=== PATIENT | female | born 1935 | race Caucasian/White ===

== ENCOUNTER 2023-09-02 00:19 | Outpatient (REF) | payer MEDICARE, SELFPAY ==
[2023-09-02 07:23] LABS: Basophils Percent Auto 0.5 % (0.2-2.0); Eosinophils Absolute Auto 0.2 10^3/uL (0.0-0.7); Eosinophils Percent Auto 2.7 % (0.9-7.0); Hematocrit 37.6 % (36.0-48.0); Hemoglobin 12.1 g/dL (12.0-16.0); Immature Granulocytes Abs Auto 0.02 10^3/uL (0.00-0.03); Immature Granulocytes Pct Auto 0.3 % (0.0-0.5); Lymphocytes Absolute Auto 2.4 10^3/uL (1.2-3.8); Lymphocytes Percent Auto 32.8 % (20.5-60.0); Mean Corpuscular HGB Conc 32.2 g/dL (29.9-35.2); Mean Corpuscular Hemoglobin 30.7 pg (26.7-34.0); Mean Corpuscular Volume 95.4 fL (81.0-99.0); Mean Platelet Volume 11.1 fL (9.5-13.5); Monocytes Absolute Auto 0.6 10^3/uL (0.3-0.8); Monocytes Percent Auto 8.7 % (1.7-12.0); Platelet Count 246 10^3/uL (150-450); Red Blood Count 3.94 10^6/uL (4.20-5.40); Red Cell Distribution Width 13.4 % (11.0-15.0); White Blood Count 7.3 10^3/uL (4.0-11.0)
[2023-09-02 07:30] LABS: Anion Gap 10.9; BUN Creatinine Ratio 27.8; Calcium 9.1 mg/dL (8.5-10.1); Carbon Dioxide 30.2 mmol/L (21.0-32.0); Chloride 102 mmol/L (98-107); Estimated GFR (African America >60 (>=60); Estimated GFR (Non-African Ame >60 (>=60); Glucose 96 mg/dL (74-106); Potassium 4.1 mmol/L (3.5-5.1); Sodium 139 mmol/L (136-145)
== END 2023-09-02 00:20 | disposition home or self-care (01) ==
LOC: LAB 00:19
PROVIDERS: PCP Internal Medicine; Visit Provider Internal Medicine
DX: E87.1 Hypo-osmolality and hyponatremia (principal); E55.9 Vitamin D deficiency, unspecified; R62.7 Adult failure to thrive
CPT/HCPCS: 36415; 80048; 85025

== ENCOUNTER 2024-03-02 02:17 | Outpatient (REF) | payer MEDICARE, SELFPAY ==
--- OUTSIDE RECORDS SUMMARY | 2024-03-02 02:24 | XMS_ITS | CCD ---
Author Organization [facility] Care Team Providers Care Renewals Manager Name Role Phone PHYSICIAN, DEFAULT Unavailable Unavailable PHYSICIAN, DEFAULT Unavailable Unavailable EDENILSON, AIMEE W Unavailable Unavailable EDENILSON, AIMEE W Unavailable Unavailable WEST, SABRA V Unavailable Unavailable EDENILSON, AIMEE W Unavailable Unavailable EDENILSON, AIMEE W Unavailable Unavailable EDENILSON, AIMEE W Unavailable Unavailable NARCISO BOSTON Unavailable Unavailable EDENILSON, AIMEE W Unavailable Unavailable EDENILSON, AIMEE W Unavailable Unavailable EDENILSON, AIMEE W Unavailable Unavailable EDENILSON, AIMEE W Unavailable Unavailable EDENILSON, AIMEE W Unavailable Unavailable MISC, DOCTOR Unavailable Unavailable EDENILSON, AIMEE W Unavailable Unavailable EDENILSON, AIMEE W Unavailable Unavailable EDENILSON, AIMEE W Unavailable Unavailable MISC, DOCTOR Unavailable Unavailable EDENILSON, AIMEE W Unavailable Unavailable EDENILSON, AIMEE W Unavailable Unavailable EDENILSON, AIMEE W Unavailable Unavailable EDENILSON, AIMEE W Unavailable Unavailable EDENILSON, AIMEE W Unavailable Unavailable EDENILSON, AIMEE W Unavailable Unavailable ASHLEY ISRAEL Unavailable Unavailable MIGDALIA VYAS Unavailable Unavailable WEST, SABRA V Unavailable Unavailable CAMILA MENON Unavailable Unavailable LEE BELLO Unavailable Unavailable NABOR LOPEZ Unavailable Unavailable FORD EVANS Unavailable Unavailable LUTHER HICKS Unavailable Unavailable EDENILSON, AIMEE W Unavailable Unavailable TRISTON WAGNER Unavailable Unavailable ASHLEY RODRÍGUEZ Unavailable Unavailable HALRAMONA CARBALLO Unavailable Unavailable EDENILSON, AIMEE W Unavailable Unavailable CHRISTI FORMAN Unavailable Unavailable HANNAH TOMLIN Unavailable Unavailable HANNAH TOMLIN Unavailable Unavailable Carlos Enrique Vasquez Unavailable Allergies Allergy Classification Reported Allergen(s) Allergy Type Date of Onset Reaction(s) Facility (2 sources) Cefuroxime Drug Allergy Unknown [employer] Other Medications Current Medications Medication Drug Class(es) Dates Sig (Normalized) Sig (Original) Calcium (2 sources) Phosphate Binder, Calcium take 2.5 tablets by mouth once daily Calcium 600mg 2.5 tabs Oral daily Active Colon Formula COLON HEALTH FORMULA (2 sources) Colon Formula COLON HEALTH FORMULA 1 Tablet Orally Active donepezil hydrochloride 10 mg oral tablet (2 sources) take 1 tablet by mouth at bedtime Donepezil HCl 10 MG TAKE 1 TABLET BY MOUTH AT BEDTIME Active Fiber-Lax (2 sources) take 3 tablets by mouth once daily Fiber-Lax 3 TABLETS Orally Daily Active hydroCHLOROthiazide 12.5 mg / lisinopril 10 mg oral tablet (2 sources) Thiazide Diuretic, Angiotensin Converting Enzyme Inhibitor take 1 tablet by mouth once daily Lisinopril-hydr oCHLOROthiazide 10-12.5 MG TAKE 1 TABLET BY MOUTH EVERY DAY Active paxlovid (300/100) 20 x 150 mg & 10 x 100mg tablet therapy pack (2 sources) Start: 09-04-2022 take 3 tablets by mouth every twelve hours Paxlovid (300/100) 20 x 150 MG & 10 x 100MG 3 tablets Orally Twice a day for 5 day(s) Aug, Active Problems Active Problems Problem Classification Problem Date Documented Da te Episodic/Chronic Bacterial infection (1 source) Other specified bacterial agents as the cause of diseases classified elsewhere; Translations: [OTH SPEC BACTERIAL DZ CLASS ELSW] Onset: 12-03-2017 Episodic Deficiency and other anemia (1 source) Iron deficiency anemia, unspecified; Translations: [IRON DEFICIENCY ANEMIA UNSPECIFIED] Onset: 11-21-2017 Episodic Delirium, dementia amnestic and other cognitive disorders (4 sources) Unspecified dementia without behavioral disturbance; Translations: [Senile dementia] Onset: 12-13-2017 Chronic Essential hypertension (8 sources) Essential (primary) hypertension; Translations: [Essential hypertension] Onset: 01-04-2010 Chronic Fluid and electrolyte disorders (5 sources) Hypo-osmolality and hyponatremia; Translations: [HYPO-OSMOLALITY AND HYPONATREMIA] Onset: 11-21-2017 Episodic Gastrointestinal hemorrhage (2 sources) Hematochezia; Translations: [Melena] Episodic Hemorrhoids (2 sources) Hemorrhoids; Translations: [Unspecified hemorrhoids] Episodic Malaise and fatigue (3 sources) Weakness; Translations: [Fatigue] Onset: 11-21-2017 Episodic Mood disorders (5 sources) Major depressive disorder, single episode, unspecified; Translations: [MOSES DEPRESS D/O SINGLE EPIS UNS] Onset: 12-01-2017 Nausea and vomiting (1 source) Nausea with vomiting, unspecified; Translations: [NAUSEA WITH VOMITING UNSPECIFIED] Onset: 11-21-2017 Episodic Nutritional deficiencies (1 source) Moderate protein-calorie malnutrition; Translations: [MODERATE PROTEIN-CALORIE MLNUTRIT] Onset: 11-21-2017 Chronic Occlusion or stenosis of precerebral arteries (1 source) Occlusion and stenosis of right carotid artery; Translations: [OCCLUSION AND STENOSIS RT CAROTID ART] Onset: 12-13-2017 Chronic Osteoarthritis (5 sources) Degenerative joint disease involving multiple joints; Translations: [Osteoarthrosis, generalized, site unspecified] Onset: 01-04-2010 Chronic Osteoporosis (3 sources) Senile osteoporosis; Translations: [Age-related osteoporosis without current pathological fracture] Chronic Other aftercare (1 source) Other alf (current) drug therapy; Translations: [OTH MANAGER MONEY CURRENT DRUG THERAPY] Onset: 12-13-2017 Episodic Other bone disease and musculoskeletal deformities (1 source) Other specified disorders of bone density and structure, unspecified site; Translations: [OTH D/O BONE DEN STRUCT UNS SITE] Onset: 12-13-2017 Episodic Other gastrointestinal disorders (1 source) Diarrhea, unspecified; Translations: [DIARRHEA UNSPECIFIED] Onset: 12-13-2017 Episodic Other gastrointestinal disorders (2 sources) Loose stool; Translations: [Other fecal abnormalities] Episodic Other hereditary and degenerative nervous system conditions (2 sources) Impaired cognition; Translations: [Mild cognitive impairment, so stated] Chronic Other nutritional; endocrine; and metabolic disorders (1 source) Hypocalcemia; Translations: [HYPOCALCEMIA] Onset: 11-21-2017 Chronic Other nutritional; endocrine; and metabolic disorders (2 sources) Unintentional weight loss; Translations: [Abnormal weight loss] Episodic Other upper respiratory disease (4 sources) Allergic rhinitis; Translations: [Allergic rhinitis] Chronic Spondylosis; intervertebral disc disorders; other back problems (9 sources) Cervical arthritis; Translations: [Cervical arthritis] Onset: 05-09-2009 Chronic Spondylosis; intervertebral disc disorders; other back problems (3 sources) Cervicalgia; Translations: [Cervical disc disorder with radiculopathy, high cervical region] Onset: 11-21-2017 Episodic Unclassified (6 sources) Altered mental status, unspecified; Translations: [Body mass index (BMI) 19.9 or less, adult] Onset: 11-21-2017 Episodic Unclassified (1 source) Alcohol abuse, in remission; Translations: [ALCOHOL ABUSE IN REMISSION] Onset: 12-13-2017 Urinary tract infections (2 sources) Urinary tract infection, site not specified; Translations: [Personal history of urinary (tract) infections] Onset: 11-21-2017 Episodic Past or Other Problems Problem Classification Problem Date Documented Da te Episodic/Chronic Miscellaneous mental health disorders (2 sources) Transient insomnia; Translations: [Transient disorder of initiating or maintaining sleep] Onset: 06-28-2011 Episodic Other non-traumatic joint disorders (2 sources) Shoulder joint pain; Translations: [Joint pain, shoulder region] Onset: 05-09-2009 Episodic Unclassified (1 source) Dementia in other diseases classified elsewhere, mild, without behavioral disturbance, psychotic disturbance, mood disturbance, and anxiety F02.A0 Results Test Name Value Interpretation Reference Range Facility ROTAVIRUS AG, EIAon 12-03-19 18 Rotavirus Ag, EIA Negative Normal Negative [facility] Comment on above: Performed By: #### B MP ####[facility] Tbergquzxp7814 [address] [place] ER URINE PROFILEon 8 Bilirubin (total) Negative Normal NEGATIVE [facility] Comment on above: Performed By: #### B MP ####[facility] Lhyfxcsugy7713 [address] [place] BLOOD TRACE-INTACT Normal NEGATIVE [facility] Comment on above: Performed By: #### B MP ####[facility] Mtwylzkfpm2258 [address] [place] ERUAHD A micrscopic examination will be performed if indicated. Normal [facility] Comment on above: Performed By: #### B MP ####[facility] Qbjvvbevnn6323 [address] [place] Glucose mass conc Negative Normal NEGATIVE [facility] Comment on above: Performed By: #### B MP ####[facility] Kmvcdodghm9337 [address] [place] pH of blood 7.5 [pH] Normal 5-9 [facility] Comment on above: Performed By: #### B MP ####[facility] Nudqbydoyw1613 [address] [place] Protein Negative Normal [facility] Comment on above: Performed By: #### B MP ####[facility] [address] [place] [address] [place] SPEC GRAVITY 1.020 Normal 1.005-<=1.025 [facility] Comment on above: Performed By: #### B MP ####[facility] [address] [place] [address] [place] UR MICRO IND INDICATED Normal [facility] Comment on above: Performed By: #### B MP ####[facility] [address]scwpvr[address] [place] [address] [place] Urine, clarity CLEAR Normal [facility] Comment on above: Performed By: #### B MP ####[facility] [address] [place] [address] [place] Urine, color LT. YELLOW Normal YELLOW [facility] Comment on above: Performed By: #### B MP ####[facility] [address] [place] [address] [place] Urine, ketones presence Negative Normal NEGATIVE [facility] Comment on above: Performed By: #### B MP ####[facility] [address] [place] [address] [place] Urine, nitrite presence Negative Normal NEGATIVE [facility] Comment on above: Performed By: #### B MP ####[facility] [address]rel[address] [place] [address] [place] Urine, urobilinogen 0.2 {Vandana'U}/dL Normal [facility] Comment on above: Performed By: #### B MP ####[facility] Mrsxcmdfvh[address] [place] [address] [place] WBC (Leukocytes) Negative Normal NEGATIVE [facility] Comment on above: Performed By: #### B MP ####[facility] [address]wftyxtu[address] [place] [address] [place] PROF CHEM 8 (BAS METB)on Anion gap 12.2 mmol/L Normal [facility] Comment on above: Performed By: #### B MP ####[facility] Vvoiogegeq3470 [place] [id number] [place] BUN/Creatinine Ratio 24.0 mg/mg Normal [facility] Comment on above: Performed By: #### B MP ####[facility] Vlqtlkolix1992 [place] [id number] [place] Calcium 9.8 mg/dL Normal 8.4-10.2 [facility] Comment on above: Performed By: #### B MP ####[facility] Wchggzukgl7566 [place] [id number] [place] Chloride 93 mmol/L Critically low 98-107 [facility] Comment on above: Performed By: #### B MP ####[facility] Jxyskqrrka4614 [place] [address]Gerken [place] CO2 29.0 mmol/L Normal 22.0-30.0 [facility] Comment on above: Performed By: #### B MP ####[facility] [address] [place], [place] [address]Gerken [place] Creatinine 0.53 mg/dL Normal 0.52-1.04 [facility] Comment on above: Performed By: #### B MP ####[facility] [address]avfpxu[address] [place], [place] [address]Gerken [place] eGFR (non-black) mL/min/{1.73_m2} Normal >=60 [facility] Comment on above: Performed By: #### B MP ####[facility] Ssrkbtlfbk4388 [place] [id number] [place] Glucose mass conc 93 mg/dL Normal 74-106 [facility] Comment on above: Performed By: #### B MP ####[facility] Kmuffdokdq5702 [place] [id number] [place] Potassium molar conc 3.9 mmol/L Normal 3.4-5.0 [facility] Comment on above: Performed By: #### B MP ####[facility] [address] [place], [place] [address]Gerken [place] Sodium 130 mmol/L Critically low 137-145 [facility] Comment on above: Performed By: #### B MP ####[facility] Fbqlkwpvhj1911 [place] [id number] [place] Urea nitrogen 13.0 mg/dL Normal 7.0-17.0 [facility] Comment on above: Performed By: #### B MP ####[facility] Adkcwphgco5653 [place] [phone] [place] URINE MICROSCOPIC ONLYon CAST NONE SEEN Normal NONE SEEN [facility] Comment on above: Performed By: #### B MP ####[facility] Iefdpwiaah2143 [address] [place] CULTURE NOT INDICATED Normal The [facility] Comment on above: Performed By: #### B MP ####[facility] Xtbjormlvl9605 [address] [place] Erythrocytes (RBC) 2-5 Normal 0-2 [facility] Comment on above: Performed By: #### B MP ####[facility] Thqcyrazxi3878 [place] [id number] [place] MUCOUS TRACE Normal NONE SEEN [facility] Comment on above: Performed By: #### B MP ####[facility] Ouvhwioxlo7038 [place], [place] [address]Hdtwjh [place] Urine, bacteria in sediment TRACE Normal NONE SEEN [facility] Comment on above: Performed By: #### B MP ####[facility] Eqawunvabd4017 [place] [phone] [place] Urine, crystals in sediment NONE SEEN Normal NONE SEEN [facility] Comment on above: Performed By: #### B MP ####[facility] Iiaqqycncl6509 [place] [phone] [place] Urine, epithelial cells in sediment FEW Normal [facility] Comment on above: Performed By: #### B MP ####[facility] Dsjffsdjfg9445 [address] [place] WBC (Leukocytes) 0-2 Normal NONE SEEN [facility] Comment on above: Performed By: #### B MP ####[facility] Yzwsafhjbt9692 [place] [phone] [place] EHEC SHIGA TOXINon 8 E coli Shiga Toxin EIA Negative Normal Negative [facility] Comment on above: Performed By: #### B MP ####[facility] [address] [place], [place] [address]Gerken [place] CLOSTRIDIUM DIFFICILE PCRon 11-29-2017 C difficile Toxin Gene APRIL Positive Abnormal Negative [facility] Comment on above: Result Comment: Carina nt Requested FlagToxigenic C difficile: PositiveEpidemic Strain Bl/NAP1/027: Presumptive Positive Performed By: #### B MP ####[facility] [address]rs[address]tsx[address] [place], [place] [address]Gerken [place] CBC AUTO DIFFon 11-28-2017 Basophils Auto #/vol (Bld) 0.0 103/ul Normal 0.0-0.1 [facility] Comment on above: Performed By: #### Lisseth WILD BMP ####[facility] [address]ub[address] [place] [address] [place] Basophils/100 WBC Auto (Bld) 0.6 % Normal 0.2-2.0 [facility] Comment on above: Performed By: #### Lisseth WILD BMP ####[facility] [address]usbypcpt[address] [place] [address] [place] Eosinophils 0.1 103/ul Normal 0.0-0.7 [facility] Comment on above: Performed By: #### Lisseth WILD BMP ####[facility] F[address] [place] [address] [place] Eosinophils/100 leukocytes 2.0 % Normal 0.9-7.0 [facility] Comment on above: Performed By: #### PROSPER GREEN ####[facility] Yrkgkzgyqj[address] [place], [place] [address]Gerken [place] Erythrocyte distribution width Auto Ratio (RBC) 14.3 % Normal 11.0-15.0 [facility] Comment on above: Performed By: #### L IVER, BMP ####[facility] Zzhfyzvzce8338 [place] [phone] [place] Erythrocytes (RBC) 3.24 106/ul Critically low 4.20-5.40 [facility] Comment on above: Performed By: #### L TORRI, BMP ####[facility] Vlqxfxgryo6416 [place] [phone] [place] Hematocrit (HCT) 29.2 % Critically low 36.0-48.0 [facility] Comment on above: Performed By: #### L TORRI, BMP ####[facility] Tevwfct[address] [place], [place] [address]Gerken [place] Hemoglobin mass conc (Bld) 9.8 g/dL Critically low 12.0-16.0 [facility] Comment on above: Performed By: #### Lisseth WILD BMP ####[facility] Ezoinftopo[address] [place], [place] [address]Gerken [place] IG # 0.03 10e3/ul Normal 0.00-0.03 [facility] Comment on above: Performed By: #### Lisseth WILD BMP ####[facility] Nfxifrtpqn[address] [place], [place] [address]Gerken [place] IG % 0.6 % Critically high 0.0-0.5 [facility] Comment on above: Performed By: #### Lisseth WILD, BMP ####[facility] Asx[address]quxs[address] [place], [place] [address]Gerken [place] Lymphocytes 1.5 103/ul Normal 1.2-3.8 [facility] Comment on above: Performed By: #### L TORRI, BMP ####[facility] [address] [place] [address] [place] Lymphocytes/100 leukocytes 29.1 % Normal 20.5-60.0 [facility] Comment on above: Performed By: #### L TORRI, BMP ####[facility] [address]cf[address] [place], [place] [address]Gerken [place] MANUAL DIFF REQ NO Normal [facility] Comment on above: Performed By: #### Lisseth WILD, BMP ####[facility] Wdhhpqcvmv1742 [place], [place] [address]Wabnzv [place] MCH 30.2 pg Normal 26.7-34.0 [facility] Comment on above: Performed By: #### Lisseth WILD, BMP ####[facility] Bobcimpuva1902 [place], [place] [address]Arvyqi [place] MCHC mass conc (RBC) 33.6 g/dL Normal 29.9-35.2 [facility] Comment on above: Performed By: #### Lisseth WILD, BMP ####[facility] Lmlwnxnqud6136 [place], [place] [address]Shgpbb [place] MCV 90.1 fL Normal 81.0-99.0 [facility] Comment on above: Performed By: #### Lisseth WILD BMP ####[facility] Iyekuzkrmy4867 [place] [id number] [place] Monocytes 0.4 103/ul Normal 0.3-0.8 [facility] Comment on above: Performed By: #### Lisseth WILD BMP ####[facility] Uqntbaqpxc9004 [place], [place] [address]Gjwikc [place] Monocytes/100 leukocytes 7.1 % Normal 1.7-12.0 [facility] Comment on above: Performed By: #### Lisseth WILD BMP ####[facility] Fdzqzzlfnh8096 [place], [place] [address]Xtqlox [place] Neutrophils 3.1 103/ul Normal 1.4-6.5 [facility] Comment on above: Performed By: #### Lisseth WILD BMP ####[facility] Nmalnjxtkp4869 [place], [place] [address]Qozzot [place] Neutrophils/100 WBC Auto (Bld) 60.6 % Normal 43.0-75.0 [facility] Comment on above: Performed By: #### Lisseth WILD, BMP ####[facility] Dtibfntfpr7009 [place], [place] [address]Jxbvoa [place] Platelet mean volume (PMV) 10.1 fL Normal 9.5-13.5 [facility] Comment on above: Performed By: #### PROSPER GREEN ####[facility] Iitfspgazi9807 [place], [place] [address]Ltsifh [place] Platelets 266 103/ul Normal 150-450 [facility] Comment on above: Performed By: #### PROSPER GREEN ####[facility] Xxfbylzlgd9723 [place], [place] [address]Vuwagi [place] WBC (Leukocytes) 5.1 103/ul Normal 4.0-11.0 [facility] Comment on above: Performed By: #### PROSPER GREEN ####[facility] Gdcafgolvj6405 [place], [place] [address]Awwiuq [place] ECHOCARDIO M/2D COMPLETEon 0 11-28-2017 ECHOCARDIO M/2D COMPLETE [address] [place] [address] Patient: ALFIE DANIELLE Exam Date: 11/28/2017DOB: 1935 Gender:F : AIMEE PYLE . Admission #: [id number] : DR MIGDALIA VYAS . Order #: [id number] HERE TO VIEW EXAM ECHOCARDIOGRAM REPORT PROCEDURE: CARDIO PULMONARY ECHOCARDIO M/2D COMP INDICATIONS: General weakness, Dementia, Increased confusion COMPARISON: None. DESCRIPTION: COMPLETE ECHOCARDIOGRAM Real-time transthoracic echocardiography with 2D, M-mode, spectral and color flow Doppler performed. QUALITY: Technical quality was good. LEFT VENTRICLE: Normal chamber size. Normal left ventricular wall thickness. Normal left ventricular contractility. No left ventricular outflow obstruction.LV EF: Normal left ventricular ejection fraction, (>55%).DIASTOLIC: Grade I diastolic dysfunction.ATRIAL SEPTUM: Intact atrial septum. LEFT ATRIUM: Normal chamber size. RIGHT ATRIUM: Mild dilatation. RIGHT VENTRICLE: Normal chamber size. No right ventricular outflow obstruction. TRICUSPID VALVE: Normal mobility and thickness. No stenosis with mild to moderate regurgitation. No evidence of pulmonary hypertension. MITRAL VALVE: Normal mobility and thickness. No mitral valve prolapse. No evidence of mitral valve stenosis. There is no mitral annular calcification. Mild mitral regurgitation. AORTIC VALVE: Normal trileaflet appearance. Thickened aortic valve. Normal leaflet mobility. No evidence of aortic valve stenosis. Trace aortic regurgitation. AORTIC ROOT: Normal diameter and appearance. PULMONIC VALVE: Normal thickness and mobility. No stenosis. Trace regurgitation. PERICARDIUM: No evidence of pericardial effusion. IVC: Collapes with inspirations. PLEURA: No evidence of pleural effusion. CONCLUSION: Normal Left Ventricular and Right Ventricular Systolic Function Mild Mitral Regurgitation Mild to Moderate Tricuspid Regurgitation with normal right sided pressures Adult Echocardiography Procedure ReportLeft Ventricle LVEDD (3.7 - 5.6 cm): 4.28 cmLVESD (2.2 - 4.0 cm): 3.07 cmLVIVS thickness (0.6 - 1.2 cm): 7.20 mmLVPW thickness (0.5 - 1.0 cm): 7.20 mme': 8.55 cm/sE - e': 6.20LVOT Area (cm2): 3.14 ok6Feep Velocity (LVOT): 67.70 cm/sMean Velocity (LVOT): 40.80 cm/sLVOT Diameter 2.00 cmLeft Ventricular Ejection Fraction: 55 %Left Atrium Left Atrium Systolic Dimension: 2.60 cmLeft Atrium Systolic Area(A4C): 10.60 qk6Oqhx Atrium Systolic Volume(A4C): 37016 jm3Kazhpr Valve MV E to A Ratio: 0.90Mitral Valve A-Wave Peak Velocity: 60.20 cm/sMitral Valve E-Wave Peak Velocity: 53.30 cm/sRight Ventricle RV Internal Diastolic Dimension: 3.01 cmRV Peak Systolic Pressure: 27 mm[Hg]Aorta AO Root Diam: 3.00 cmAortic Valve Peak Velocity (Antegrade Flow): 112.00 cm/sAoV Area (Peak Trent): 1.84 cm2AoV Area (VTI): 1.98 ss4Gyrnew Valve Cusp Separation: 1.50 cmPeak Velocity(Antegrade Flow): 119.00 cm/sPeak Gradient(Antegrade Flow): 6 mm[Hg]Mean Velocity(Antegrade Flow): 77.90 cm/sMean Gradient(Antegrade Flow): 3 mm[Hg], 3 mm[Hg]Velocity Time Integral: 21.40 cmTricuspid Valve Peak Velocity (Regurgitant Flow): 229.00 cm/s, 215.00 cm/sPeak Velocity: 62.40 cm/s, 62.70 cm/sPulmonic Valve Peak Velocity: 77.40 cm/sPeak Gradient: 2 mm[Hg]Right Atrium Right Atrium Systolic Pressure: 5 mm[Hg] Dictated by: RAMON CAZARES M.D. on 11/29/2017 at 16:51 Approved by: RAMON CAZARES M.D. on 11/29/2017 at 17:04 Normal [facility] OCC BLD IMMUNO SCREENon 11-10 OCCULT BLOOD Negative Normal NEGATIVE [facility] Comment on above: Performed By: #### Lisseth WILD, BMP ####[facility] Ozaehzsrkj[address] [place] PROF 14(COMP METB)on 018 Alanine aminotransferase (ALT) 35 U/L Normal 9- [facility] Comment on above: Performed By: #### L TORRI, BMP ####[facility] Azfmrpnaau7156 [address] [place] Albumin 3.2 g/dL Critically low 3.5-5.0 [facility] Comment on above: Performed By: #### Lisseth WILD, BMP ####[facility] [address] [place] [address] [place] Albumin/Globulin Ratio 1.4 {ratio} Normal [facility] Comment on above: Performed By: #### L TORRI, BMP ####[facility] Glaxfhbpwq4274 [address] [place] Alkaline phosphatase (ALP) 55 U/L Normal 38-126 [facility] Comment on above: Performed By: #### L TORRI, BMP ####[facility] Hsmazwzzey0051 [address] [place] Anion gap 9.5 mmol/L Normal [facility] Comment on above: Performed By: #### L TORRI, BMP ####[facility] Wjqzckghog2859 [address] [place] Aspartate aminotransferase (AST) 20 U/L Normal 14-36 [facility] Comment on above: Performed By: #### L TORRI, BMP ####[facility] Vhkuhylwnl5464 [address] [place] Bilirubin Ql (U) 0.6 mg/dL Normal 0.2-1.3 [facility] Comment on above: Performed By: #### L TORRI, BMP ####[facility] Sccyrjxltb9416 [place], [place] [address]Zswfza [place] BUN/Creatinine Ratio 27.8 mg/mg Normal [facility] Comment on above: Performed By: #### L TORRI, BMP ####[facility] Mrfmwqzthi0227 [place], [place] [address]Wefbeb Agnieszka Calcium 9.1 mg/dL Normal 8.4-10.2 [facility] Comment on above: Performed By: #### L TORRI, BMP ####[facility] Ambkfpcycm2161 [place] [id number] Agnieszka Chloride 95 mmol/L Critically low 98-107 [facility] Comment on above: Performed By: #### L TORRI, BMP ####[facility] U[address] [place] [address] Agnieszka CO2 28.0 mmol/L Normal 22.0-30.0 [facility] Comment on above: Performed By: #### L TORRI, BMP ####[facility] Bkwueokfgt119[address] [place] Creatinine 0.44 mg/dL Critically low 0.52-1.04 [facility] Comment on above: Performed By: #### Lisseth WILD, BMP ####[facility] Iuyrbivdjs2370 [place] [id number] Agnieszka eGFR (non-black) mL/min/{1.73_m2} Normal >=60 Th [facility] Comment on above: Performed By: #### L IVLIBBY, BMP ####[facility] Uwklktogqm2508 [place], [place] [address]Gsaoho Agnieszka Globulin 2.3 g/dL Normal [facility] Comment on above: Performed By: #### L IVLIBBY, BMP ####[facility] Trlmfmsern5713 [place] [id number] Agnieszka Glucose mass conc 75 mg/dL Normal 74-106 [facility] Comment on above: Performed By: #### L IVLIBBY, BMP ####[facility] Enorgekomb4752 [place], [place] [address]Hpqhvh Agnieszka Potassium molar conc 4.2 mmol/L Normal 3.4-5.0 [facility] Comment on above: Performed By: #### L TORRI, BMP ####[facility] Lskecgsmgw6675 [place], [place] [address]Lnchyx Agnieszka Protein 5.5 g/dL Critically low 6.1-8.2 [facility] Comment on above: Performed By: #### L TORRI, BMP ####[facility] Euwfxqtjgy7036 [place], [place] [address]Dxghel Agnieszka Sodium 128 mmol/L Critically low 137-145 [facility] Comment on above: Performed By: #### L TORRI, BMP ####[facility] Rniuszsitg3196 [place], [place] [address]Mxdeye Agnieszka Urea nitrogen 12.0 mg/dL Normal 7.0-17.0 [facility] Comment on above: Performed By: #### L TORRI, BMP ####[facility] Strlqwhufo2629 [place], [place] [address]Xejibv Agnieszka US CAROTID ART BILon 018 Bilirubin (total) 1400 [place] [address] Patient: ALFIE DANIELLE Exam Date: 11/28/2017DOB: 1935 Gender:F : AIMEE PYLE . Admission #: [id number] : DR MIGDALIA VYAS . Order #: [id number] HERE TO VIEW EXAM RADIOLOGY REPORT PROCEDURE: ULTRASOUND CAROTID ARTERIAL BILATERAL COMPARISON: None. INDICATIONS: Altered mental status TECHNIQUE: Duplex Doppler ultrasound analysis of carotid and vertebral arteries. FINDINGS: RIGHT CAROTID: Moderate plaque with 60% area reduction of the proximal ICA. LEFT CAROTID: Mild plaque without visible stenosis. VERTEBRALS: Antegrade flow bilaterally. OTHER: None. RIGHT CAROTID ARTERY (PSV) LEFT CAROTID ARTERY (PSV) Subclavian: 174.00 cm/s Subclavian: 139.62 cm/s CCA: Proximal: 93.51 cm/s CCA: Proximal: 100.90 cm/s Mid: 74.13 cm/s Mid: 81.54 cm/s Distal: 88.67 cm/s Distal: 65.43 cm/s BULB: 59.60 cm/s BULB: 57.34 cm/s ICA: Proximal: 104.20 cm/s ICA: Proximal: 83.12 cm/s Mid: 113.92 cm/s Mid: 87.95 cm/s Distal: 120.38 cm/s Distal: 99.22 cm/s ECA: 73.55 cm/s ECA: 52.54 cm/s VERTEBRAL: 70.30 cm/s VERTEBRAL: 60.31 cm/s ICA/CCA ratio: 1.29 ICA/CCA ratio: 0.98 Spectral Doppler US Thresholds (Reference: Kavon EG, et al. Radiology 2000; 214:247-252) Stenosis (%) PSV (cm/sec) VICA/VCCA 0-49 <150 <2.5 50-69 150-225 2.5-4.0 >70 >225 >4.0 CONCLUSION: 1. 0-49% flow stenosis within the right and left carotid arteries.2. Moderate atherosclerotic disease of the right carotid artery resulting in up to 60% area reduction within the proximal ICA. Dictated by: Nabor Lopez M.D. on 11/28/2017 at 11:54 Approved by: Nabor Lopez M.D. on 11/28/2017 at 11:57 Normal [facility] AMMONIAon 11-27-2017 Ammonia ug/dL Critically low 10-30 [facility] Comment on above: Performed By: #### Lisseth WILD, PROSPER ####[facility] Rcfpbsslqo6611 [address] [place] CARDIAC ASHLEY ADMITon 018 CKMB 0.96 ng/mL Normal <=2.37 [facility] Comment on above: Performed By: #### Lisseth WILD, PROSPER ####[facility] Qowjydfwdu5486 [address] [place] Creatine kinase (CK) U/L Critically low 30-135 [facility] Comment on above: Performed By: #### PROSPER GREEN ####[facility] [address]udsdw[address] [place] [address] Agnieszka INR Coag RelTime (Bld) SEE BELOW Normal [facility] Comment on above: Result Comment: <0.0 34 ng/ml NEGATIVE 0.034-0.119 INDETERMINATE 0.120 AMI CUT OFF Performed By: #### PROSPER GREEN ####[facility] Axelndrlnd[address] [place] [address] Agnieszka Result Comment: MARLYS RED INR: 2.0 - 3.0 CONDITIONS NOT LISTED BELOW 2.5 - 3.5 FOR PROSTHETIC HEART VALVE REPLACEMENT 2.5 - 3.5 RECURRENT THROMBOSIS SALLY 21.0 ng/mL Normal <=61.5 [facility] Comment on above: Performed By: #### Lisseth WILD, PROSPER ####[facility] Xpwhoqxxrq0375 [address] [place] TROP <0.012 Normal <=0.034 [facility] Comment on above: Performed By: #### PROSPER GREEN ####[facility] Ardns[address]ws[address] [place] [address] Agnieszka CBC AUTO DIFFon 11-27-2017 Basophils Auto #/vol (Bld) 0.0 103/ul Normal 0.0-0.1 [facility] Comment on above: Performed By: #### E ####[facility] Enylffxjxf6018 [place] [phone] Agnieszka Basophils/100 WBC Auto (Bld) 0.5 % Normal 0.2-2.0 [facility] Comment on above: Performed By: #### E ####[facility] Vgwydgtbfl[address] [place], [place] [address]Gerken Agnieszka Eosinophils 0.1 103/ul Normal 0.0-0.7 [facility] Comment on above: Performed By: #### E ####[facility] Yrc[address]ms[address]ol[address] [place] [address] Agnieszka Eosinophils/100 leukocytes 1.3 % Normal 0.9-7.0 [facility] Comment on above: Performed By: #### E ####[facility] Sjfzgtswn[address] [place] [address] Agnieszka Erythrocyte distribution width Auto Ratio (RBC) 14.6 % Normal 11.0-15.0 [facility] Comment on above: Performed By: #### E ####[facility] Zalvhmlqvq[address] [place] [address] Agnieszka Erythrocytes (RBC) 3.15 106/ul Critically low 4.20-5.40 [facility] Comment on above: Performed By: #### E ####[facility] Avvlitabnd[address] [place], [place] [address]Gerken Agnieszka Hematocrit (HCT) 28.6 % Critically low 36.0-48.0 [facility] Comment on above: Performed By: #### E ####[facility] Kgamivdupn[address] [place], [place] [address]Gerken Agnieszka Hemoglobin mass conc (Bld) 9.5 g/dL Critically low 12.0-16.0 [facility] Comment on above: Performed By: #### E ####[facility] Qnputjaffb[address] [place], [place] [address]Gerken Agnieszka IG # 0.02 10e3/ul Normal 0.00-0.03 [facility] Comment on above: Performed By: #### E ####[facility] Cepvjawsbu2059 [place] [id number] Agnieszka IG % 0.3 % Normal 0.0-0.5 [facility] Comment on above: Performed By: #### E TH ####[facility] Fgawnzkjzs8905 [place] [id number] Agnieszka Lymphocytes 1.3 103/ul Normal 1.2-3.8 [facility] Comment on above: Performed By: #### E ####[facility] Jxt[address] [place] [address] Agnieszka Lymphocytes/100 leukocytes 22.6 % Normal 20.5-60.0 [facility] Comment on above: Performed By: #### E ####[facility] Rj[address]fexjqv[address] [place] [address] Agnieszka MANUAL DIFF REQ NO Normal [facility] Comment on above: Performed By: #### E ####[facility] [address]eqkcddzlj[address] [place] [address] Agnies[place]ka MCH 30.2 pg Normal 26.7-34.0 [facility] Comment on above: Performed By: #### E ####[facility] Chankdsltb[address] [place], [place] [address]Gerken Agnieszka MCHC mass conc (RBC) 33.2 g/dL Normal 29.9-35.2 [facility] Comment on above: Performed By: #### E ####[facility] [address]xc[address] [place] [address] Agnies[place]ka MCV 90.8 fL Normal 81.0-99.0 [facility] Comment on above: Performed By: #### E ####[facility] Xqwckukcrf[address] [place] [address] Agnies[place]ka Monocytes 0.5 103/ul Normal 0.3-0.8 [facility] Comment on above: Performed By: #### E ####[facility] [address]ts[address]xeja[address] [place] [address] Agnieszka Monocytes/100 leukocytes 8.6 % Normal 1.7-12.0 [facility] Comment on above: Performed By: #### E TH ####[facility] Qvyvvstlsm0824 [place], [place] [address]Trmqwm Agnieszka Neutrophils 4.0 103/ul Normal 1.4-6.5 [facility] Comment on above: Performed By: #### E TH ####[facility] Elvhhbuces7430 [place], [place] [address]Xhtsyc Agnieszka Neutrophils/100 WBC Auto (Bld) 66.7 % Normal 43.0-75.0 [facility] Comment on above: Performed By: #### E TH ####[facility] Bmumlkcpjy4025 [place], [place] [address]Uagfki Karen Platelet mean volume (PMV) 10.0 fL Normal 9.5-13.5 [facility] Comment on above: Performed By: #### E TH ####[facility] Wbdgbecpgg8202 [place], [place] [address]Sydszg Agnieszka Platelets 234 103/ul Normal 150-450 [facility] Comment on above: Performed By: #### E TH ####[facility] Qxrmpwpjwv1003 [place], [place] [address]Fylzmt Agnieszka WBC (Leukocytes) 5.9 103/ul Normal 4.0-11.0 [facility] Comment on above: Performed By: #### E TH ####[facility] Klcerqwhlt5950 [place], [place] [address] HEAD WO CONon 11-27-2017 CT HEAD WO CON [address] [place] [address] Patient: ALFIE DANIELLE Exam Date: 11/27/2017DOB: 1935 Gender:F : ASHLEY RAMIREZ Admission #: [id number] : NICO BELLO Order #: [id number] HERE TO VIEW EXAM RADIOLOGY REPORT PROCEDURE: CT HEAD WITHOUT CONTRAST COMPARISON: None. INDICATIONS: Acute altered mental status TECHNIQUE: Axial CT images were obtained without IV contrast. DOSE: 1005 mGycm FINDINGS: BRAIN: Age-appropriate atrophy is present, without visible acute hemorrhage or lesion. 9 mm lacunar infarct left basal gangliaCSF SPACES: No hydrocephalus, subarachnoid hemorrhage, or mass. Appropriate for age. SKULL: No fracture, mass, or other significant visible lesion. SINUSES: No significant mucosal thickening or fluid on the limited views. ORBITS: No appreciable abnormality on the limited views. OTHER: Negative CONCLUSION: 1. No acute intracranial abnormality Dictated by: Sabra Leslie M.D. on 11/27/2017 at 11:38 Approved by: Sabra Leslie M.D. on 11/27/2017 at 11:47 Normal [facility] ER URINE PROFILEon 8 Bilirubin (total) Negative Normal NEGATIVE [facility] Comment on above: Performed By: #### L TORRI BMP ####[facility] Ejwqjmmvng[address] [place] BLOOD SMALL Normal NEGATIVE [facility] Comment on above: Performed By: #### L TORRI BMP ####[facility] Yuzvadkoid8762 [address] [place] ERUAHD A micrscopic examination will be performed if indicated. Normal [facility] Comment on above: Performed By: #### L TORRI BMP ####[facility] Jrxmgsrerf6836 [address] [place] Glucose mass conc Negative Normal NEGATIVE [facility] Comment on above: Performed By: #### L IVLIBBY BMP ####[facility] Hgywbqbaxx7770 [address] [place] pH of blood 5.5 [pH] Normal 5-9 [facility] Comment on above: Performed By: #### L IVER BMP ####[facility] Zeijztymkx6879 [address] [place] Protein Negative Normal [facility] Comment on above: Performed By: #### L IVLIBBY BMP ####[facility] Qefzmxotfh7228 [address] [place] SPEC GRAVITY 1.010 Normal 1.005-<=1.025 [facility] Comment on above: Performed By: #### L IVER, BMP ####[facility] Gdlmphvoig0068 [address] [place] UR MICRO IND INDICATED Normal [facility] Comment on above: Performed By: #### L IVER, BMP ####[facility] Pjyqmjithv6384 [place] [phone] Agnieszka Urine, clarity CLEAR Normal [facility] Comment on above: Performed By: #### L IVER, BMP ####[facility] Nilxkjezcn0164 [place] [phone] Agnieszka Urine, color LT. YELLOW Normal YELLOW [facility] Comment on above: Performed By: #### L IVER, BMP ####[facility] Qbpeltawmd2638 [address] [place] Urine, ketones presence Negative Normal NEGATIVE [facility] Comment on above: Performed By: #### L IVER, BMP ####[facility] [address] [place] [address] Agnieszka Urine, nitrite presence Negative Normal NEGATIVE [facility] Comment on above: Performed By: #### L IVER, BMP ####[facility] F[address]dfpvmj[address] [place], [place] [address]Gerken Agnieszka Urine, urobilinogen 0.2 {Vandana'U}/dL Normal [facility] Comment on above: Performed By: #### L IVER, BMP ####[facility] [address]gsjcrgyy[address] [place] [address] Agnies[place]ka WBC (Leukocytes) Negative Normal NEGATIVE [facility] Comment on above: Performed By: #### L IVER, BMP ####[facility] Wdeujxxlrq1267 [place] [id number] Agnieszka FREE T3on 11-27-2017 Triiodothyronine (T3) free 2.97 pg/mL Normal 2.77-5.27 [facility] Comment on above: Performed By: #### L IVER, BMP ####[facility] [address]dp[address]iz[address] [place] [address] Agnieszka LIVER PROFILEon 11-27-2017 Alanine aminotransferase (ALT) 33 U/L Normal 9-52 [facility] Comment on above: Performed By: #### L IVLIBBY, BMP ####[facility] Uyquvrjgcg9331 [place] [phone] Agnieszka Albumin 3.2 g/dL Critically low 3.5-5.0 [facility] Comment on above: Performed By: #### L IVLIBBY, BMP ####[facility] Oajtxfkcpt8864 [address] [place] Albumin/Globulin Ratio 1.4 {ratio} Normal [facility] Comment on above: Performed By: #### L TORRI, BMP ####[facility] Atruesckei0232 [address] [place] Alkaline phosphatase (ALP) 48 U/L Normal 38-126 [facility] Comment on above: Performed By: #### Lisseth WILD, BMP ####[facility] [address]sfke[address] [place] [address] Agn[place]ka Aspartate aminotransferase (AST) 18 U/L Normal 14-36 [facility] Comment on above: Performed By: #### Lisseth WILD, BMP ####[facility] Ckjhcmyxju9857 [address] [place] BILI, CONJUGATED 0.0 mg/dL Normal 0.0-0.3 [facility] Comment on above: Performed By: #### Lisseth WILD, BMP ####[facility] Cahhplilrf9143 [address] [place] Bilirubin Ql (U) 0.4 mg/dL Normal 0.2-1.3 [facility] Comment on above: Performed By: #### L TORRI, BMP ####[facility] Babgeywgzh9210 [place] [id number] Agnieszka Globulin 2.3 g/dL Normal [facility] Comment on above: Performed By: #### L IVLIBBY, BMP ####[facility] Rlcrsuszxk6250 [place] [phone] Agnieszka Protein 5.5 g/dL Critically low 6.1-8.2 [facility] Comment on above: Performed By: #### L TORRI BMP ####[facility] Lsvauuxbfs7236 [place], [place] [address]Po[place]uk Agnieszka MRI BRAIN WO CONon 8 MRI BRAIN WO CON [address] [facility] [place] [address] Patient: ALFIE DANIELLE Exam Date: 11/27/2017DOB: 1935 Gender:F : DR MIGDALIA VYAS . Admission #: [id number] : AIMEE DiazMelida PYLE . Order #: [id number] HERE TO VIEW EXAM RADIOLOGY REPORT PROCEDURE: MRI BRAIN WITHOUT CONTRAST COMPARISON: CT HEAD WO CON, 11/27/2017. INDICATIONS: Altered mental status, dementia TECHNIQUE: A variety of imaging planes and parameters were utilized for visualization of suspected pathology. Images were performed without contrast. FINDINGS: Very limited evaluation, prematurely terminated following sagittal T1 and axial diffusion imaging. Severe motion artifact. CEREBRUM: No edema, hemorrhage, mass, acute infarction, or inappropriate atrophy. CEREBELLUM: No edema, hemorrhage, mass, acute infarction, or inappropriate atrophy. BRAINSTEM: No edema, hemorrhage, mass, acute infarction, or inappropriate atrophy. CSF SPACES: Ventricles, cisterns, and sulci are appropriate for age. No hydrocephalus, subarachnoid hemorrhage, or mass. SKULL: No mass or other significant visible lesion. SINUSES: Limited views demonstrate no significant mucosal thickening or fluid. ORBITS: Limited views are unremarkable. CONCLUSION: 1. Very limited evaluation2. No acute infarct Dictated by: Sabra Leslie M.D. on 11/27/2017 at 18:03 Approved by: Sabra Leslie M.D. on 11/27/2017 at 18:09 Normal [facility] PROF CHEM 8 (BAS METB)on Anion gap 12.3 mmol/L Normal [facility] Comment on above: Performed By: #### PROSPER GREEN ####[facility] Pzartpdqqq1041 [place], [place] [address]Fxhthp Agnies[place]ka BUN/Creatinine Ratio 30.9 mg/mg Normal [facility] Comment on above: Performed By: #### PROSPER GREEN ####[facility] Cqkxvmizdm9309 [place], [place] [address]Rsorji Agn[place]ka Calcium 8.4 mg/dL Normal 8.4-10.2 [facility] Comment on above: Performed By: #### L IVLIBBY, BMP ####[facility] Dpgbwbrcrt2479 [place] [id number] Agnies[place]ka Chloride 98 mmol/L Normal 98-107 [facility] Comment on above: Performed By: #### L TORRI, BMP ####[facility] Hkxfpoqjtu0726 [place] [phone] Agnieszka CO2 26.0 mmol/L Normal 22.0-30.0 [facility] Comment on above: Performed By: #### L TORRI, BMP ####[facility] Fspuytsxtl16[address] [place] Creatinine 0.52 mg/dL Normal 0.52-1.04 [facility] Comment on above: Performed By: #### L TORRI, BMP ####[facility] Aiaonodfts8154 [address] [place] eGFR (non-black) mL/min/{1.73_m2} Normal >=60 Th [facility] Comment on above: Performed By: #### L TORRI, BMP ####[facility] Xbgvomiiug2794 [address] [place] Glucose mass conc 78 mg/dL Normal 74-106 [facility] Comment on above: Performed By: #### L IVLIBBY, BMP ####[facility] Octflrkzlh7299 [address] [place] Potassium molar conc 3.5 mmol/L Normal 3.4-5.0 [facility] Comment on above: Performed By: #### L IVLIBBY, BMP ####[facility] Xijeinfrfv4506 [address] [place] Sodium 132 mmol/L Critically low 137-145 [facility] Comment on above: Performed By: #### L IVLIBBY, BMP ####[facility] Kaipzegfae0178 [address] [place] Urea nitrogen 16.0 mg/dL Normal 7.0-17.0 [facility] Comment on above: Performed By: #### PROSPER GREEN ####[facility] [address] [place] [address] Agnieszka PROTIMEon 11-27-2017 INR Coag RelTime (PPP) 1.03 {INR} Normal [facility] Comment on above: Performed By: #### PROSPER GREEN ####[facility] [address] [place] [address] Agnies[place]ka Prothrombin time (PT) Coag time (PPP) 10.6 s Normal 9.0-11.6 [facility] Comment on above: Performed By: #### PROSPER GREEN ####[facility] [address] [place] [address] Agnies[place]ka PT NORMAL PLEASE NOTE: NORMAL RANGE CHANGE 04-29-2014 DUE TO REAGENT LOT CHANGE Normal [facility] Comment on above: Performed By: #### PROSPER GREEN ####[facility] [address]axxq[address]ich[address] [place] [address] Agnieszka PTTon 11-27-2017 aPTT 20.1 s Critically low 22.3-36.2 [facility] Comment on above: Performed By: #### PROSPER GREEN ####[facility] M[address] [place] [address] Agnies[place]ka aPTT PLEASE NOTE: NORMAL RANGE CHANGE 07-06-2015 DUE TO REAGENT LOT CHANGE Normal [facility] Comment on above: Performed By: #### PROSPER GREEN ####[facility] T[address]fcx[address] [place] [address] Agn[place]ka T4on 11-27-2017 T4 7.57 ug/dL Normal 5.53-11.00 [facility] Comment on above: Performed By: #### PROSPER GREEN ####[facility] [address]tf[address] [place] [address] Agn[place]ka TSHon 11-27-2017 Thyroid stimulating hormone (TSH) SEE BELOW Normal [facility] Comment on above: Result Comment: <0.3 4 UIU/ml HYPERTHYROID 0.34-5.60 UIU/ml EUTHYROID >5.60 UIU/ml HYPOTHYROID Performed By: #### L IVER, BMP ####[facility] Icxehxghxq5824 [address] [place] Thyroid stimulating hormone (TSH) 0.628 uIU/mL Normal 0.470-4.680 [facility] Comment on above: Performed By: #### L IVER, BMP ####[facility] [address]upqx[address] [place] [address] Agnies[place]ka URINE MICROSCOPIC ONLYon CAST NONE SEEN Normal NONE SEEN [facility] Comment on above: Performed By: #### L IVER, BMP ####[facility] [address]jbq[address] [place] [address] Ag[place] CULTURE NOT INDICATED Normal [facility] Comment on above: Performed By: #### L IVER, BMP ####[facility] [address]fth[address] [place] [address] Ag[place]ka Erythrocytes (RBC) 0-2 Normal 0-2 [facility] Comment on above: Performed By: #### L IVER, BMP ####[facility] [address]xt[address]qsyf[address] [place] [address] Agn[place]ka MUCOUS NONE SEEN Normal NONE SEEN [facility] Comment on above: Performed By: #### L IVER, BMP ####[facility] Sm[address]xfexnrs[address] [place] [address] Agn[place]ka Urine, bacteria in sediment NONE SEEN Normal NONE SEEN [facility] Comment on above: Performed By: #### L IVER, BMP ####[facility] Xpwuxvwisb4982 [address] [place] Urine, crystals in sediment NONE SEEN Normal NONE SEEN [facility] Comment on above: Performed By: #### L IVER, BMP ####[facility] [address] [place] [address] Agn[place]ka Urine, epithelial cells in sediment RARE Normal [facility] Comment on above: Performed By: #### L IVER, BMP ####[facility] Syazsssxja74[address] WBC (Leukocytes) NONE SEEN Normal NONE SEEN [facility] Comment on above: Performed By: #### Lisseth WILD, BMP ####[facility] Prtdwlsyiw8390 [address] [place] VIT B12 AND FOLATEon 2017 Cobalamins (Vitamin B12) 610.0 pg/mL Normal 239.0-931.0 [facility] Comment on above: Performed By: #### Lisseth WILD, BMP ####[facility] Deautdudep488[address] [place] FOLATE >20.00 Normal >=2.76 [facility] Comment on above: Performed By: #### Lisseth WILD BMP ####[facility] Bzkkvlzzgk8228 [address] [place] VITAMIN D 25 OHon 11-27-2017 VIT D 25-OH 88.9 ng/mL Normal [facility] Comment on above: Performed By: #### Lisseth WILD BMP ####[facility] [address]xqzi[address] [place] [address] Agnies[place]ka VIT D RANGES SEE BELOW Normal [facility] Comment on above: Result Comment: <20 ng/mL Vit D deficient 20 - <30 ng/mL Vit D insufficient 30 - 100 ng/mL Vit D sufficient >100 ng/mL Potential Toxicity Performed By: #### Lisseth WILD BMP ####[facility] [address] [place] [address] [place] VITDH PLEASE NOTE: NORMAL RANGE CHANGE 04-16-2013, TESTING PERFORMED AT [facility]. Normal [facility] Comment on above: Performed By: #### Lisseth WILD BMP ####[facility] [address]buay[address] [place] [address] Agnies[place]ka XR CHEST 2 Von 11-27-2017 XR CHEST 2 V [address] [place] [address] Patient: ALFIE DANIELLE Exam Date: 11/27/2017DOB: 1935 Gender:F : ASHLEY RAMIREZ Admission #: [id number] : NICO BELLO Order #: [id number] HERE TO VIEW EXAM RADIOLOGY REPORT PROCEDURE: RADIOGRAPH CHEST 2 VIEWS COMPARISON: XR CHEST 1 V, 11/12/2017. INDICATIONS: Acute altered mental status FINDINGS: LUNGS: Stable hyperinflation. No focal parenchymal infiltrates.VASCULATUR E: No increased pulmonary vasculature. PLEURA: No pneumothorax, effusion, or pleural thickening. CARDIAC: No cardiomegaly or cardiac silhouette abnormality. MEDIASTINUM: Calcifications consistent with old granulomatous disease. BONES: No fracture or visible bone lesion. Right shoulder arthroplastyOTHER: stable right PICC catheter, the tip projects over the distal superior vena cava CONCLUSION: No acute disease. Dictated by: Sabra Leslie M.D. on 11/27/2017 at 12:00 Approved by: Sabra Leslie M.D. on 11/27/2017 at 12:01 Normal [facility] OSMALITYon 11-21-2017 Osmolality 215 mOsmol/kg Invalid Interpretation Code [id number] [facility] Comment on above: Result Comment: Re sults verified by repeat testing Performed By: #### E TH ####[facility] Nhxeohswnl35[address] [place] OSMALITY URINEon 11-21-2017 Osmolality, Urine 394 mOsmol/kg Normal [facility] Comment on above: Result Comment: 24 h r : 300 - 900 Random: 50 - 1400 After 12hr fluid restriction: >850 Performed By: #### E TH ####[facility] Sxyqeapxza5808 [address] [place] Osmolality, Urine 400 mOsmol/kg Normal [facility] Comment on above: Result Comment: 24 h r : 300 - 900 Random: 50 - 1400 After 12hr fluid restriction: >850 Performed By: #### O SMOU ####[facility] [address] [place] [address] Agnieszka POTASSIUM, URINE (RANDOM)on 11-21-2017 Potassium, Urine 41.9 mmol/L Normal Not Estab. [facility] Comment on above: Performed By: #### E TH ####[facility] Anilhlu[address] [place], [place] [address]ken Agnieszka PROF CHEM 8 (BAS METB)on Anion gap 14.2 mmol/L Normal [facility] Comment on above: Performed By: #### E ####[facility] Nmbfxllqhk3830 [address] [place] BUN/Creatinine Ratio 29.4 mg/mg Normal [facility] Comment on above: Performed By: #### E ####[facility] Qagcgdgddd2640 [address] [place] Calcium 9.2 mg/dL Normal 8.4-10.2 [facility] Comment on above: Performed By: #### E ####[facility] Djxykcud[address] [place] [address] Agnies[place]ka Chloride 90 mmol/L Critically low 98-107 [facility] Comment on above: Performed By: #### E ####[facility] Pktydaeduc[address] [place] [address] Agnieszka CO2 25.0 mmol/L Normal 22.0-30.0 [facility] Comment on above: Performed By: #### E ####[facility] M[address]cquipa[address] [place] [address] Agn[place]ka Creatinine 0.44 mg/dL Critically low 0.52-1.04 [facility] Comment on above: Performed By: #### E ####[facility] T[address]linjyfc[address] [place] [address] Agnieszka Glucose mass conc 160 mg/dL Critically high 74-106 Th [facility] Comment on above: Performed By: #### E ####[facility] Xdcyyuplql8262 [address] [place] Potassium molar conc 3.7 mmol/L Normal 3.4-5.0 [facility] Comment on above: Performed By: #### E ####[facility] [address]qf[address] [place] [address] Agnieszka Sodium 126 mmol/L Critically low 137-145 [facility] Comment on above: Performed By: #### E ####[facility] Qpyqzikkme4964 [place], [place] [address]Fzvdfj Agnieszka Urea nitrogen 13.0 mg/dL Normal 7.0-17.0 The [facility] Comment on above: Performed By: #### E TH ####[facility] Uceeegxbpt5729 [place], [place] [address]Dopjij Agnieszka PROF CHEM 8 (BAS METB)on Anion gap 9.8 mmol/L Normal [facility] Comment on above: Performed By: #### E TH ####[facility] Bcnetonjjd2960 [place] [id number] Agnieszka BUN/Creatinine Ratio 24.5 mg/mg Normal [facility] Comment on above: Performed By: #### E TH ####[facility] Wmjqksektj9201 [place] [id number] Agnieszka Calcium 8.7 mg/dL Normal 8.4-10.2 [facility] Comment on above: Performed By: #### E TH ####[facility] Ajvutyscmz[address] [place], [place] [address]Gerken Agnieszka Chloride 83 mmol/L Critically low 98-107 [facility] Comment on above: Result Comment: est repeated critical vlue verified Performed By: #### E TH ####[facility] Mhzhpoaiad[address] [place], [place] [address]Gerken Agnieszka CO2 31.0 mmol/L Critically high 22.0-30.0 [facility] Comment on above: Performed By: #### E TH ####[facility] Udgetdbsns6453 [place] [phone] Agnieszka Creatinine 0.41 mg/dL Critically low 0.52-1.04 [facility] Comment on above: Performed By: #### E TH ####[facility] Fvoppbbfjh7522 [place], [place] [address]Jtyzuj Agnieszka eGFR (non-black) 149 mL/min/{1.73_m2} Normal >=60 [facility] Comment on above: Performed By: #### E TH ####[facility] Gufkeihbwk5616 [place] [phone] Agnieszka eGFR (non-black) 180 mL/min/{1.73_m2} Normal >=60 [facility] Comment on above: Performed By: #### E TH ####[facility] Wjfihrzksi6326 [place] [phone] Aaron Glucose mass conc 81 mg/dL Normal 74-106 [facility] Comment on above: Performed By: #### E TH ####[facility] Ecupxbhdak7121 [address] [place] Potassium molar conc 4.1 mmol/L Normal 3.4-5.0 [facility] Comment on above: Performed By: #### E TH ####[facility] [address]cttkebxk[address] [place] [address] Agnies[place]ka Sodium 119 mmol/L Critically low 137-145 [facility] Comment on above: Result Comment: est repeated critical vlue verified Performed By: #### E TH ####[facility] Qxjfrkxhii[address] [place] [address] Agnies[place]ka Urea nitrogen 10.0 mg/dL Normal 7.0-17.0 The [facility] Comment on above: Performed By: #### E TH ####[facility] Ygywsmtahf[address] [place] [address] Agnieszka PROF CHEM 8 (BAS METB)on Anion gap 8.9 mmol/L Normal [facility] Comment on above: Performed By: #### E TH ####[facility] Wmfmicnddv9195 [place] [phone] Agnieszka BUN/Creatinine Ratio 29.4 mg/mg Normal [facility] Comment on above: Performed By: #### E TH ####[facility] Wdrhvgmslm[address] [place], [place] [address]Gerken Agnieszka Calcium 9.2 mg/dL Normal 8.4-10.2 [facility] Comment on above: Performed By: #### E TH ####[facility] Ikbkknamty[address] [place], [place] [address]Gerken Agnieszka Chloride 80 mmol/L Critically low 98-107 [facility] Comment on above: Result Comment: Test repeated. Critical result verified. Performed By: #### E ####[facility] Rqyivfdlac2016 [address] [place] CO2 31.0 mmol/L Critically high 22.0-30.0 [facility] Comment on above: Performed By: #### E ####[facility] Nuldomykcw1365 [address] [place] Creatinine 0.43 mg/dL Critically low 0.52-1.04 [facility] Comment on above: Performed By: #### E ####[facility] Bhoiwsghgz0602 [address] [place] eGFR (non-black) mL/min/{1.73_m2} Normal >=60 [facility] Comment on above: Performed By: #### E ####[facility] Ccbjcwmaiq[address] [place] [address] Agnies[place]ka Glucose mass conc 100 mg/dL Normal 74-106 [facility] Comment on above: Performed By: #### E ####[facility] Dsaopmgywj[address] [place] [address] [place] Potassium molar conc 3.9 mmol/L Normal 3.4-5.0 [facility] Comment on above: Performed By: #### E ####[facility] Sumjffkurs[address] [place], [place] [address]Gerken Agnieszka Sodium 118 mmol/L Critically low 137-145 [facility] Comment on above: Result Comment: Test repeated. Critical results verified. Performed By: #### E ####[facility] Pznrkdehso[address] [place] [address] Agn[place]ka Urea nitrogen 13.0 mg/dL Normal 7.0-17.0 [facility] Comment on above: Performed By: #### E ####[facility] Idtjpztclh[address] [place], [place] [address]Gerken Agnieszka CBC AUTO DIFFon 11-14-2017 Basophils Auto #/vol (Bld) 0.0 103/ul Normal 0.0-0.1 [facility] Comment on above: Performed By: #### E TH ####[facility] Ixhcbdvpke2086 [address] Aaron Basophils/100 WBC Auto (Bld) 0.1 % Critically low 0.2-2.0 [facility] Comment on above: Performed By: #### E TH ####[facility] Fmtjpyjabu9695 [place] [phone] Agnieszka Eosinophils 0.1 103/ul Normal 0.0-0.7 [facility] Comment on above: Performed By: #### E TH ####[facility] Ppdlbwsfvp[address] [place] [address] Agn[place]ka Eosinophils/100 leukocytes 1.2 % Normal 0.9-7.0 [facility] Comment on above: Performed By: #### E TH ####[facility] Bcyovekgbk[address] [place] [address] Agn[place]ka Erythrocyte distribution width Auto Ratio (RBC) 13.2 % Normal 11.0-15.0 [facility] Comment on above: Performed By: #### E TH ####[facility] Xmmxguhkdp[address] [place] [address] Agnies[place]ka Erythrocytes (RBC) 3.23 106/ul Critically low 4.20-5.40 [facility] Comment on above: Performed By: #### E TH ####[facility] Jmwhbpjifc[address] [place], [place] [address]Gerken Agnieszka Hematocrit (HCT) 27.6 % Critically low 36.0-48.0 [facility] Comment on above: Performed By: #### E TH ####[facility] Qmdosmxkpp[address] [place], [place] [address]Gerken Agnieszka Hemoglobin mass conc (Bld) 9.7 g/dL Critically low 12.0-16.0 [facility] Comment on above: Performed By: #### E TH ####[facility] Qmriyqydft[address] [place], [place] [address]Gerken Agnieszka IG # 0.04 10e3/ul Critically high 0.00-0.03 [facility] Comment on above: Performed By: #### E ####[facility] Pgvhpczsan3320 [address] [place] IG % 0.5 % Normal 0.0-0.5 [facility] Comment on above: Performed By: #### E ####[facility] Purmigcklu7952 [address] [place] Lymphocytes 1.9 103/ul Normal 1.2-3.8 [facility] Comment on above: Performed By: #### E ####[facility] Ishbgrggwo4789 [address] [place] Lymphocytes/100 leukocytes 24.0 % Normal 20.5-60.0 [facility] Comment on above: Performed By: #### E ####[facility] [address]jv[address]vimo[address] [place] [address] Agnies[place]ka MANUAL DIFF REQ NO Normal [facility] Comment on above: Performed By: #### E ####[facility] Rvnbrwvaxn[address] [place], [place] [address]Gerken Agnieszka MCH 30.0 pg Normal 26.7-34.0 [facility] Comment on above: Performed By: #### E ####[facility] Goxwqciqry04[address] [place], [place] [address]Gerken Agnieszka MCHC mass conc (RBC) 35.1 g/dL Normal 29.9-35.2 [facility] Comment on above: Performed By: #### E ####[facility] Qvzhfdrrbm[address] [place], [place] [address]Gerken Agnieszka MCV 85.4 fL Normal 81.0-99.0 [facility] Comment on above: Performed By: #### E ####[facility] Fkdpdyoqxo60[address] [place], [place] [address]Gerken Agnieszka Monocytes 0.8 103/ul Normal 0.3-0.8 [facility] Comment on above: Performed By: #### E ####[facility] Albeynwbui[address] [place], [place] [address]Gerlos Yipen Monocytes/100 leukocytes 10.1 % Normal 1.7-12.0 [facility] Comment on above: Performed By: #### E TH ####[facility] Lrxweiguch5523 [place] [phone] Agnieszka Neutrophils 5.2 103/ul Normal 1.4-6.5 [facility] Comment on above: Performed By: #### E TH ####[facility] Nbcobmjxaw0920 [place] [phone] Agnieszka Neutrophils/100 WBC Auto (Bld) 64.1 % Normal 43.0-75.0 [facility] Comment on above: Performed By: #### E ####[facility] Vwfqduaped[address] [place], [place] [address]Jaquelin Aaron Platelet mean volume (PMV) 11.5 fL Normal 9.5-13.5 [facility] Comment on above: Performed By: #### E TH ####[facility] Zjiypzbqvi[address] [place], [place] [address]Jaquelin Aaron Platelets 221 103/ul Normal 150-450 [facility] Comment on above: Performed By: #### E ####[facility] Wpyxmnrsdr02[address] [place], [place] [address]Gerlos Aaron WBC (Leukocytes) 8.1 103/ul Normal 4.0-11.0 [facility] Comment on above: Performed By: #### E TH ####[facility] Fdalkfellp[address] [place], [place] [address]Gerken Agnieszka PROF CHEM 8 (BAS METB)on Anion gap 7.3 mmol/L Normal [facility] Comment on above: Performed By: #### E TH ####[facility] Lvauyqnzuu0341 [place] [phone] Agnieszka BUN/Creatinine Ratio 31.7 mg/mg Normal [facility] Comment on above: Performed By: #### E TH ####[facility] Hvnbdrxjxq6355 [place] [phone] Agnieszka Calcium 7.7 mg/dL Critically low 8.4-10.2 [facility] Comment on above: Performed By: #### E ####[facility] Svlgtfcdco7937 [place], [place] [address]Kvjkzo Agnieszka Chloride 87 mmol/L Critically low 98-107 [facility] Comment on above: Performed By: #### E ####[facility] Xipqgvipbx3266 [place], [place] [address]Wsrcpt Agnieszka CO2 26.0 mmol/L Normal 22.0-30.0 [facility] Comment on above: Performed By: #### E ####[facility] Cpypphsnal9883 [place] [phone] Agnieszka Creatinine 0.40 mg/dL Critically low 0.52-1.04 [facility] Comment on above: Performed By: #### E ####[facility] Dnuaamdwto7800 [place] [phone] Agnieszka eGFR (non-black) mL/min/{1.73_m2} Normal >=60 [facility] Comment on above: Performed By: #### E ####[facility] Ftejpsmdfx4482 [place], [place] [address]Iulvjo Agnieszka Glucose mass conc 80 mg/dL Normal 74-106 [facility] Comment on above: Performed By: #### E ####[facility] Tbhrkmthrs47[address] [place], [place] [address]Gerken Agnieszka Potassium molar conc 3.5 mmol/L Normal 3.4-5.0 [facility] Comment on above: Performed By: #### E ####[facility] Neitzyzwqi3140 [place], [place] [address]Nwryuh Agnieszka Sodium 117 mmol/L Critically low 137-145 [facility] Comment on above: Result Comment: Test repeated. Critical results verified. Performed By: #### E ####[facility] Cyweelcsqx2552 [place] [phone] Agnieszka Urea nitrogen 13.0 mg/dL Normal 7.0-17.0 [facility] Comment on above: Performed By: #### E ####[facility] Zhvibyfgyr7497 [place], [place] [address]Oxoleq Karen CBC AUTO DIFFon 11-13-2017 Basophils Auto #/vol (Bld) 0.0 103/ul Normal 0.0-0.1 [facility] Comment on above: Performed By: #### C BC ####[facility] Ufwntqwopq1097 [place] [phone] Agnieszka Basophils/100 WBC Auto (Bld) 0.1 % Critically low 0.2-2.0 [facility] Comment on above: Performed By: #### C BC ####[facility] Sacbxiassg[address] [place], [place] [address]Gerken Agnieszka Eosinophils 0.0 103/ul Normal 0.0-0.7 [facility] Comment on above: Performed By: #### C BC ####[facility] Gvrmkewdjn[address] [place] [address] Agnieszka Eosinophils/100 leukocytes 0.2 % Critically low 0.9-7.0 [facility] Comment on above: Performed By: #### C BC ####[facility] Vtaxnhhanx[address] [place] [address] Agnieszka Erythrocyte distribution width Auto Ratio (RBC) 12.7 % Normal 11.0-15.0 [facility] Comment on above: Performed By: #### C BC ####[facility] Xozqksfekz[address] [place] [address] Agnieszka Erythrocytes (RBC) 3.61 106/ul Critically low 4.20-5.40 [facility] Comment on above: Performed By: #### C BC ####[facility] Midtqdedmb668[address] [place], [place] [address]Gerken Agnieszka Hematocrit (HCT) 30.2 % Critically low 36.0-48.0 [facility] Comment on above: Performed By: #### C BC ####[facility] Zsbyaxnvug244[address] [place], [place] [address]Gerken Agnieszka Hemoglobin mass conc (Bld) 11.0 g/dL Critically low 12.0-16.0 [facility] Comment on above: Performed By: #### C BC ####[facility] Idhfvznhet8397 [address] Agnieszka IG # 0.05 10e3/ul Critically high 0.00-0.03 [facility] Comment on above: Performed By: #### C BC ####[facility] Sxgdgwzwxz8199 [place] [phone] Agnieszka IG % 0.6 % Critically high 0.0-0.5 [facility] Comment on above: Performed By: #### C BC ####[facility] Bzqvqeirhq8257 [address] [place] Lymphocytes 1.5 103/ul Normal 1.2-3.8 [facility] Comment on above: Performed By: #### C BC ####[facility] Rmavxxjgqn[address] [place] [address] Agnieszka Lymphocytes/100 leukocytes 18.0 % Critically low 20.5-60.0 [facility] Comment on above: Performed By: #### C BC ####[facility] Evbdhsrcqu[address] [place] [address] Agnieszka MANUAL DIFF REQ NO Normal [facility] Comment on above: Performed By: #### C BC ####[facility] Pleqdjyqgb[address] [place] [address] Agnieszka MCH 30.5 pg Normal 26.7-34.0 [facility] Comment on above: Performed By: #### C BC ####[facility] Aglpnqdfji5066 [address] Agn[place]ka MCHC mass conc (RBC) 36.4 g/dL Critically high 29.9-35.2 [facility] Comment on above: Performed By: #### C BC ####[facility] Xwthvxemdn[address] [place] [address] Agnieszka MCV 83.7 fL Normal 81.0-99.0 [facility] Comment on above: Performed By: #### C BC ####[facility] Pgdpwdqnkf4784 [address] [place] Monocytes 0.8 103/ul Normal 0.3-0.8 [facility] Comment on above: Performed By: #### C BC ####[facility] Eryewdbfqi8392 [place], [place] [address]Kpjclu Agnieszka Monocytes/100 leukocytes 9.3 % Normal 1.7-12.0 [facility] Comment on above: Performed By: #### C BC ####[facility] Ujvvpulxwj2070 [place], [place] [address]Jwdwiv Agnieszka Neutrophils 5.9 103/ul Normal 1.4-6.5 [facility] Comment on above: Performed By: #### C BC ####[facility] Euzcylbqyl1230 [place], [place] [address]Piwsbk Agnieszka Neutrophils/100 WBC Auto (Bld) 71.8 % Normal 43.0-75.0 [facility] Comment on above: Performed By: #### C BC ####[facility] Jcgmbynouw[address] [place], [place] [address]Gerken Agnieszka Platelet mean volume (PMV) 10.9 fL Normal 9.5-13.5 [facility] Comment on above: Performed By: #### C BC ####[facility] H[address]px[address] [place] [address]Blnwet Agnieszka Platelets 233 103/ul Normal 150-450 [facility] Comment on above: Performed By: #### C BC ####[facility] Wsmvpzxbzu5639 [place], [place] [address]Noboau Agnieszka WBC (Leukocytes) 8.3 103/ul Normal 4.0-11.0 [facility] Comment on above: Performed By: #### C BC ####[facility] Kvlqytxjpu3284 [place], [place] [address]Abfyln Agnieszka PROF CHEM 8 (BAS METB)on Anion gap 11.3 mmol/L Normal [facility] Comment on above: Performed By: #### B MP ####[facility] Ukhqrzwuvi9061 [place], [place] [address]Upsclx Agnieszka BUN/Creatinine Ratio 33.6 mg/mg Normal [facility] Comment on above: Performed By: #### B MP ####[facility] Vfprdpqmbs5901 [place], [place] [address]Zgayut Agnieszka Calcium 8.3 mg/dL Critically low 8.4-10.2 [facility] Comment on above: Performed By: #### B MP ####[facility] Ijpjgvpshu4252 [place], [place] [address]Suqyah Agnieszka Chloride 81 mmol/L Critically low 98-107 [facility] Comment on above: Result Comment: test repeated critical value verified Performed By: #### B MP ####[facility] Lupcqtrjar1042 [place], [place] [address]Hujcgy Agnieszka CO2 25.0 mmol/L Normal 22.0-30.0 [facility] Comment on above: Performed By: #### B MP ####[facility] Wxusmfpeki6501 [place], [place] [address]Fddgaa Agnieszka Creatinine 0.47 mg/dL Critically low 0.52-1.04 [facility] Comment on above: Performed By: #### B MP ####[facility] Kqcoseolmx6419 [place], [place] [address]Uqfuym Agnieszka eGFR (non-black) mL/min/{1.73_m2} Normal >=60 Th [facility] Comment on above: Performed By: #### B MP ####[facility] Ljrnuniaqd3250 [place], [place] [address]Potfty Agnieszka Glucose mass conc 99 mg/dL Normal 74-106 [facility] Comment on above: Performed By: #### B MP ####[facility] Ejbfxmcjpq6664 [place], [place] [address]Pczhfp Agnieszka Potassium molar conc 3.5 mmol/L Normal 3.4-5.0 [facility] Comment on above: Performed By: #### B MP ####[facility] Tcfsiyrxkk5762 [place], [place] [address]Gbwmsm Agnieszka Sodium 115 mmol/L Critically low 137-145 [facility] Comment on above: Result Comment: test repeated critical value verified Performed By: #### B MP ####[facility] Argbsjrggh6999 [place], [place] [address]Vctcjl Agnieszka Urea nitrogen 16.0 mg/dL Normal 7.0-17.0 [facility] Comment on above: Performed By: #### B MP ####[facility] Cfcgbyojrj1455 [place] [id number] Agnieszka Anion gap 10.3 mmol/L Normal [facility] Comment on above: Performed By: #### B MP ####[facility] Arhumsotyi3731 [place] [phone] Agnieszka BUN/Creatinine Ratio 24.2 mg/mg Normal [facility] Comment on above: Performed By: #### B MP ####[facility] Ihqrrxzldi6638 [address] Agnieszka Calcium 8.1 mg/dL Critically low 8.4-10.2 [facility] Comment on above: Performed By: #### B MP ####[facility] Jmvnkvmybg1069 [address] Agnies[place]ka Chloride 81 mmol/L Critically low 98-107 [facility] Comment on above: Result Comment: test repeated critical value verified Performed By: #### B MP ####[facility] Hsplxebdcu8938 [address] Agnieszka CO2 22.0 mmol/L Normal 22.0-30.0 [facility] Comment on above: Performed By: #### B MP ####[facility] Nehlmrjldq4483 [address] Agnieszka Creatinine 0.42 mg/dL Critically low 0.52-1.04 [facility] Comment on above: Performed By: #### B MP ####[facility] Iojqhgqfae4629 [place] [id number] Agnieszka eGFR (non-black) mL/min/{1.73_m2} Normal >=60 Th [facility] Comment on above: Performed By: #### B MP ####[facility] Zgrzpmubht7136 [address] Agnieszka Glucose mass conc 79 mg/dL Normal 74-106 [facility] Comment on above: Performed By: #### B MP ####[facility] Rrqtqhfoda3778 [place], [place] [address]Vefkzj Agnieszka Potassium molar conc 3.6 mmol/L Normal 3.4-5.0 [facility] Comment on above: Performed By: #### B MP ####[facility] Xxepuyzilg9456 [place], [place] [address]Onbbzk Agnieszka Sodium 109 mmol/L Critically low 137-145 [facility] Comment on above: Result Comment: test repeated critical value verified Performed By: #### B MP ####[facility] Zjlphtfqns7083 [place] [id number] Agnieszka Urea nitrogen 10.0 mg/dL Normal 7.0-17.0 [facility] Comment on above: Performed By: #### B MP ####[facility] [address]htzwpqnt[address] [place], [place] [address]Gerken Agnieszka Anion gap 7.1 mmol/L Normal [facility] Comment on above: Performed By: #### B MP ####[facility] Llaxtztxsm[address] [place], [place] [address]Gerken Agnieszka BUN/Creatinine Ratio 29.6 mg/mg Normal [facility] Comment on above: Performed By: #### B MP ####[facility] Nrqybcfqlx65[address] [place], [place] [address]Gerken Agnieszka Calcium 7.9 mg/dL Critically low 8.4-10.2 [facility] Comment on above: Performed By: #### B MP ####[facility] Neqwvvixbv1405 [place] [id number] Agnieszka Chloride 80 mmol/L Critically low 98-107 [facility] Comment on above: Result Comment: test repeated critical value verified Performed By: #### B MP ####[facility] Rbhaseadox[address] [place], [place] [address]Gerken Agnieszka CO2 25.0 mmol/L Normal 22.0-30.0 [facility] Comment on above: Performed By: #### B MP ####[facility] Xkaheggbuh[address] [place], [place] [address]Gerken Agnieszka Creatinine 0.45 mg/dL Critically low 0.52-1.04 [facility] Comment on above: Performed By: #### B MP ####[facility] Umnqvvtgxk1347 [address] Agnieszka eGFR (non-black) mL/min/{1.73_m2} Normal >=60 Th [facility] Comment on above: Performed By: #### B MP ####[facility] Ipvtrtmehv6685 [place] [phone] Agnieszka Glucose mass conc 89 mg/dL Normal 74-106 [facility] Comment on above: Performed By: #### B MP ####[facility] [address] [place] [address] Agnieszka Potassium molar conc 3.8 mmol/L Normal 3.4-5.0 [facility] Comment on above: Performed By: #### B MP ####[facility] Egofhubdcw[address] [place] [address] Agnieszka Sodium 109 mmol/L Critically low 137-145 [facility] Comment on above: Result Comment: test repeated critical value verified Performed By: #### B MP ####[facility] Aykpbryssc[address] [place] [address] Agnieszka Urea nitrogen 13.0 mg/dL Normal 7.0-17.0 [facility] Comment on above: Performed By: #### B MP ####[facility] Swgknmrvms[address] [place] [address] Agnieszka CBC AUTO DIFFon 11-12-2017 Basophils Auto #/vol (Bld) 0.0 103/ul Normal 0.0-0.1 [facility] Comment on above: Performed By: #### C BC ####[facility] Qouyhovruc[address] [place] [address] Agnieszka Basophils/100 WBC Auto (Bld) 0.1 % Critically low 0.2-2.0 [facility] Comment on above: Performed By: #### C BC ####[facility] Glfmkozrwi[address] [place] [address] Agnies[place]ka Eosinophils 0.1 103/ul Normal 0.0-0.7 [facility] Comment on above: Performed By: #### C BC ####[facility] Sctpnebzat2771 [address] [place] Eosinophils/100 leukocytes 0.4 % Critically low 0.9-7.0 [facility] Comment on above: Performed By: #### C BC ####[facility] Xvzipyyjmo7107 [address] [place] Erythrocyte distribution width Auto Ratio (RBC) 12.3 % Normal 11.0-15.0 [facility] Comment on above: Performed By: #### C BC ####[facility] Ynxybmgjhf6496 [address] [place] Erythrocytes (RBC) 3.57 106/ul Critically low 4.20-5.40 [facility] Comment on above: Performed By: #### C BC ####[facility] Mwcdbcwohi[address] [place], [place] [address]Gerken Agnieszka Hematocrit (HCT) 29.2 % Critically low 36.0-48.0 [facility] Comment on above: Performed By: #### C BC ####[facility] S[address] [place] [address] Agnieszka Hemoglobin mass conc (Bld) 10.8 g/dL Critically low 12.0-16.0 [facility] Comment on above: Performed By: #### C BC ####[facility] Iffskihnda1719 [place] [id number] Agnieszka IG # 0.07 10e3/ul Critically high 0.00-0.03 [facility] Comment on above: Performed By: #### C BC ####[facility] Dyfwjfzokf2168 [address] [place] IG % 0.6 % Critically high 0.0-0.5 [facility] Comment on above: Performed By: #### C BC ####[facility] Zeiszfxulo9582 [address] [place] Lymphocytes 1.3 103/ul Normal 1.2-3.8 [facility] Comment on above: Performed By: #### C BC ####[facility] Rmmkcfszei0794 [place] [id number] Agnieszka Lymphocytes/100 leukocytes 10.8 % Critically low 20.5-60.0 [facility] Comment on above: Performed By: #### C BC ####[facility] Tgjzuxysou6302 [place] [phone] Agnieszka MANUAL DIFF REQ NO Normal [facility] Comment on above: Performed By: #### C BC ####[facility] Siizscpcdc2981 [place] [phone] Agnieszka MCH 30.3 pg Normal 26.7-34.0 [facility] Comment on above: Performed By: #### C BC ####[facility] Mieorqjkis[address] [place], [place] [address]Gerken Agnieszka MCHC mass conc (RBC) 37.0 g/dL Critically high 29.9-35.2 [facility] Comment on above: Performed By: #### C BC ####[facility] Aqbdlmpljv[address] [place], [place] [address]Gerken Agnieszka MCV 81.8 fL Normal 81.0-99.0 [facility] Comment on above: Performed By: #### C BC ####[facility] Tlhvbtmzzp[address] [place], [place] [address]Gerken Agnieszka Monocytes 0.7 103/ul Normal 0.3-0.8 [facility] Comment on above: Performed By: #### C BC ####[facility] Pdsrvuszjq[address] [place], [place] [address]Gerken Agnieszka Monocytes/100 leukocytes 6.3 % Normal 1.7-12.0 [facility] Comment on above: Performed By: #### C BC ####[facility] Ukeivtfqdk[address] [place], [place] [address]Gerken Agnieszka Neutrophils 9.6 103/ul Critically high 1.4-6.5 [facility] Comment on above: Performed By: #### C BC ####[facility] Sxcldwogqf[address] [place], [place] [address]Gerlos Aaron Neutrophils/100 WBC Auto (Bld) 81.8 % Critically high 43.0-75.0 [facility] Comment on above: Performed By: #### C BC ####[facility] Imhszepxal4648 [address] [place] Platelet mean volume (PMV) 11.2 fL Normal 9.5-13.5 [facility] Comment on above: Performed By: #### C BC ####[facility] Sbrftrqdrl0041 [address] [place] Platelets 240 103/ul Normal 150-450 [facility] Comment on above: Performed By: #### C BC ####[facility] Gwokzmwlfx[address] [place] [address] Agnieszka WBC (Leukocytes) 11.7 103/ul Critically high 4.0-11.0 [facility] Comment on above: Performed By: #### C BC ####[facility] X[address]knqwacdc[address] [place] [address] Agnieszka IRON AND TIBCon 11-12-2017 % SATURATION 37.0 % Normal [facility] Comment on above: Performed By: #### F ETIBC ####[facility] Eefxahhhfg[address] [place] [address] Agnieszka Iron 84.0 ug/dL Normal 37.0-170.0 [facility] Comment on above: Performed By: #### F ETIBC ####[facility] H[address]jsbflnqv[address] [place] [address] Agnies[place]ka TIBC DIRECT 228.0 ug/dL Critically low 261.0-497.0 [facility] Comment on above: Performed By: #### F ETIBC ####[facility] Xivyposukv[address] [place] [address] Agnieszka POINT OF CARE GLUCOSEon Glucose mass conc 84 mg/dL Normal 74-106 [facility] Comment on above: Performed By: #### P OCGLUC ####[facility] Uaowhilxbd[address] [place] [address] Agnieszka PROF CHEM 8 (BAS METB)on Anion gap 10.2 mmol/L Normal [facility] Comment on above: Performed By: #### B MP ####[facility] Temwbodyfz35[address] [place] [address]Gerken Agnieszka BUN/Creatinine Ratio 33.6 mg/mg Normal [facility] Comment on above: Performed By: #### B MP ####[facility] Wwwdraoeis4800 [address] [place] Calcium 8.1 mg/dL Critically low 8.4-10.2 [facility] Comment on above: Performed By: #### B MP ####[facility] Pzaiqhvnes9366 [address] [place] Chloride 76 mmol/L Critically low 98-107 [facility] Comment on above: Result Comment: TEST REPEATED CRITICAL VALUE VERIFIED Performed By: #### B MP ####[facility] Smdwdhxmmi[address] [place] [address] Agnieszka CO2 23.0 mmol/L Normal 22.0-30.0 [facility] Comment on above: Performed By: #### B MP ####[facility] [address]uy[address]abqoh[address] [place] [address] Agnieszka Creatinine 0.42 mg/dL Critically low 0.52-1.04 [facility] Comment on above: Performed By: #### B MP ####[facility] Sllqavmvub4222 [address] [place] eGFR (non-black) mL/min/{1.73_m2} Normal >=60 Th [facility] Comment on above: Performed By: #### B MP ####[facility] Uikhfyfjwy1447 [address] [place] Glucose mass conc 101 mg/dL Normal 74-106 [facility] Comment on above: Performed By: #### B MP ####[facility] Jqfmnjvexb1221 [address] [place] Potassium molar conc 3.8 mmol/L Normal 3.4-5.0 [facility] Comment on above: Performed By: #### B MP ####[facility] Xjugzyowfc1381 [place], [place] [address]Uooixr Agnies[place]ka Sodium 106 mmol/L Critically low 137-145 [facility] Comment on above: Result Comment: test repeated critical value verified Performed By: #### B MP ####[facility] Rltwxwomcx0356 [place], [place] [address]Svgnve Agnies[place]ka Urea nitrogen 14.0 mg/dL Normal 7.0-17.0 [facility] Comment on above: Performed By: #### B MP ####[facility] Pysqhkgnrb4853 [place] [phone] Agnieszka Anion gap 9.2 mmol/L Normal [facility] Comment on above: Performed By: #### B MP ####[facility] Rpvphatyue3266 [place] [phone] Agnieszka BUN/Creatinine Ratio 25.9 mg/mg Normal [facility] Comment on above: Performed By: #### B MP ####[facility] Pxjdumfmse[address] [place], [place] [address]Gerken Agnieszka Calcium 7.9 mg/dL Critically low 8.4-10.2 [facility] Comment on above: Performed By: #### B MP ####[facility] G[address]xae[address]fr[address] [place], [place] [address]Gerken Agnieszka Chloride 73 mmol/L Critically low 98-107 [facility] Comment on above: Result Comment: TEST REPEATED CRITICAL VALUE VERIFIED Performed By: #### B MP ####[facility] Zfcukleadq6821 [place] [phone] Agnieszka CO2 24.0 mmol/L Normal 22.0-30.0 [facility] Comment on above: Performed By: #### B MP ####[facility] Olgcpsgqgd4663 [place] [phone] Agnieszka Creatinine 0.41 mg/dL Critically low 0.52-1.04 [facility] Comment on above: Performed By: #### B MP ####[facility] [address]mfdjnuezq[address] [place], [place] [address]Gerken Agnieszka eGFR (non-black) mL/min/{1.73_m2} Normal >=60 Th [facility] Comment on above: Performed By: #### B MP ####[facility] Mebsjcyoyv2978 [place] [phone] Agnieszka Glucose mass conc 90 mg/dL Normal 74-106 [facility] Comment on above: Performed By: #### B MP ####[facility] Rvunhkukym7077 [place] [phone] Agnieszka Potassium molar conc 3.6 mmol/L Normal 3.4-5.0 [facility] Comment on above: Performed By: #### B MP ####[facility] Neingwmotn3296 [place] [phone] Agnieszka Sodium 103 mmol/L Critically low 137-145 [facility] Comment on above: Result Comment: TEST RE[EATED CROTOCA; VA;IE VERIFIED Performed By: #### B MP ####[facility] Rjddvheysp2434 [place] [phone] Agnieszka Urea nitrogen 11.0 mg/dL Normal 7.0-17.0 [facility] Comment on above: Performed By: #### B MP ####[facility] Fkghvqjcow4602 [place] [phone] Agnieszka Anion gap 7.0 mmol/L Normal [facility] Comment on above: Performed By: #### B MP ####[facility] Msbophsdjw7321 [place] [phone] Agnieszka BUN/Creatinine Ratio 24.9 mg/mg Normal [facility] Comment on above: Performed By: #### B MP ####[facility] Cjtuyfbljk4966 [place] [phone] Agnieszka Calcium 7.7 mg/dL Critically low 8.4-10.2 [facility] Comment on above: Performed By: #### B MP ####[facility] Rngzudwdui5375 [place] [phone] Agnies[place] Chloride 71 mmol/L Critically low 98-107 [facility] Comment on above: Result Comment: test repeated critical value verified Performed By: #### B MP ####[facility] Iyqqufljxo2139 [place], [place] [address]Havcof Agnies[place]ka CO2 25.0 mmol/L Normal 22.0-30.0 [facility] Comment on above: Performed By: #### B MP ####[facility] Ormpjyynzq8265 [place], [place] [address]Idevld Agnieszka Creatinine 0.43 mg/dL Critically low 0.52-1.04 [facility] Comment on above: Performed By: #### B MP ####[facility] Eiwhmiejlf7327 [place], [place] [address]Bzptec Agnieszka eGFR (non-black) mL/min/{1.73_m2} Normal >=60 Th [facility] Comment on above: Performed By: #### B MP ####[facility] Xdcvmighxh4405 [place] [phone] Agnieszka Glucose mass conc 70 mg/dL Critically low 74-106 [facility] Comment on above: Performed By: #### B MP ####[facility] Hysedlecdi5878 [place], [place] [address]Pgwcyv Agnies[place]ka Potassium molar conc 3.5 mmol/L Normal 3.4-5.0 [facility] Comment on above: Performed By: #### B MP ####[facility] Rxoscprcia8945 [place] [phone] Agnieszka Sodium 99 mmol/L Critically low 137-145 [facility] Comment on above: Result Comment: test repeated critical value verified Performed By: #### B MP ####[facility] Nfuemqzhqo6499 [place], [place] [address]Flpdit Agnies[place]ka Urea nitrogen 11.0 mg/dL Normal 7.0-17.0 [facility] Comment on above: Performed By: #### B MP ####[facility] Kmdpegtgtk6374 [place] [phone] Agnieszka Anion gap 9.3 mmol/L Normal [facility] Comment on above: Performed By: #### B MP ####[facility] Xqgwyvqvap2657 [address] [place] BUN/Creatinine Ratio 24.5 mg/mg Normal [facility] Comment on above: Performed By: #### B MP ####[facility] Ueawqtinpf8659 [place] [phone] Agnieszka Calcium 7.9 mg/dL Critically low 8.4-10.2 [facility] Comment on above: Performed By: #### B MP ####[facility] Oznmoiovkw4496 [address] [place] Chloride 70 mmol/L Critically low 98-107 [facility] Comment on above: Result Comment: test repeated critical value verified Performed By: #### B MP ####[facility] Hxkawadial[address] [place] [address] Agnieszka CO2 24.0 mmol/L Normal 22.0-30.0 [facility] Comment on above: Performed By: #### B MP ####[facility] Olnijkczbq[address] [place] [address] Agn[place] Creatinine 0.48 mg/dL Critically low 0.52-1.04 [facility] Comment on above: Performed By: #### B MP ####[facility] Vhbkmwunhr[address] [place] [address] Agnieszka eGFR (non-black) mL/min/{1.73_m2} Normal >=60 Th [facility] Comment on above: Performed By: #### B MP ####[facility] Fkvtnvfxex0556 [address] [place] Glucose mass conc 62 mg/dL Critically low 74-106 [facility] Comment on above: Performed By: #### B MP ####[facility] Tirohwopny7348 [address] [place] Potassium molar conc 3.5 mmol/L Normal 3.4-5.0 [facility] Comment on above: Performed By: #### B MP ####[facility] Fljmdncexz5168 [address] [place] Sodium 99 mmol/L Critically low 137-145 [facility] Comment on above: Result Comment: test repeated critical value verified Performed By: #### B MP ####[facility] Dovqpoiwmj4494 [address] [place] Urea nitrogen 12.0 mg/dL Normal 7.0-17.0 [facility] Comment on above: Performed By: #### B MP ####[facility] Pkxroefamv2656 [place], [place] [address]Zgoazb Ag[place]ka SODIUM RANDOM URINEon 2017 Sodium 47 mmol/L Normal 30-90 [facility] Comment on above: Performed By: #### N AU ####[facility] Kcifjvcfla40[address] [place] US KIDNEYSon 11-12-2017 US KIDNEYS [address] [place] [address] Patient: ALFIE DANIELLE Exam Date: 11/12/2017DOB: 1935 Gender:F : AIMEE PYLE . Admission #: [id number] : ICU Order #: [id number] HERE TO VIEW EXAM RADIOLOGY REPORT PROCEDURE: ULTRASOUND KIDNEYS COMPARISON: None. INDICATIONS: Hyponatremia TECHNIQUE: Ultrasound examination was performed of the kidneys and bladder. FINDINGS: RIGHT KIDNEY: Moderate increase in renal cortical parenchymal echogenicity and diffuse atrophy consistent with intrinsic medical renal disease. Multiple anechoic areas along cortex, largest measuring 1.2 cm. Color Doppler demonstrates blood flow within the kidney. Kidney: 8.8 x 4.9 x 4.7 cm LEFT KIDNEY: Moderate increase in renal cortical parenchymal echogenicity and diffuse atrophy consistent with intrinsic medical renal disease. Color Doppler demonstrates blood flow within the kidney. Kidney: 9.0 x 5.0 x 5.4 cm BLADDER: No visible wall thickening, mass, or calculus. Catheter in place . CONCLUSION: 1. Bilateral renal cortical atrophy and intrinsic medical disease2. Right renal cortical simple cysts Dictated by: Sabra Leslie M.D. on 11/12/2017 at 08:25 Approved by: Sabra Leslie M.D. on 11/12/2017 at 08:26 Normal [facility] VIT B12 AND FOLATEon 018 Cobalamins (Vitamin B12) pg/mL Critically high 239.0-931.0 [facility] Comment on above: Performed By: #### E TH ####[facility] Hrzzkhpavr26[address] [place] FOLATE 10.20 ng/mL Normal >=2.76 [facility] Comment on above: Performed By: #### E TH ####[facility] Mpxwlxoqmo2501 [address] [place] XR CHEST 1 Von 11-12-2017 XR CHEST 1 V [address] [place] [address] Patient: ALFIE DANIELLE Exam Date: 11/12/2017DOB: 1935 Gender:F : AIMEE PYLE . Admission #: [id number] : Order #: [id number] HERE TO VIEW EXAM RADIOLOGY REPORT PROCEDURE: RADIOGRAPH CHEST 1 VIEW COMPARISON: XR CHEST 2 V, 11/11/2017. INDICATIONS: Insertion of peripherally inserted central catheter FINDINGS: LUNGS: No significant pulmonary parenchymal abnormalities. bibasilar nodules likely a nipple shadowVASCULATURE: No increased pulmonary vasculature. PLEURA: No pneumothorax, effusion, or pleural thickening. CARDIAC: No cardiomegaly or cardiac silhouette abnormality. MEDIASTINUM: Calcifications consistent with old granulomatous disease. BONES: No fracture or visible bone lesion. Right shoulder arthroplastyOTHER: Right PICC catheter, the tip projects over the upper superior vena cava CONCLUSION: 1. PICC catheter tip projects over the upper superior vena cava, normal position Dictated by: Sabra Leslie M.D. on 11/12/2017 at 10:14 Approved by: Sabra Leslie M.D. on 11/12/2017 at 10:16 Normal [facility] CBC AUTO DIFFon 11-11-2017 Basophils Auto #/vol (Bld) 0.0 103/ul Normal 0.0-0.1 [facility] Comment on above: Performed By: #### C BC ####[facility] Dzvlnrpilj2626 [address] [place] Basophils/100 WBC Auto (Bld) 0.1 % Critically low 0.2-2.0 [facility] Comment on above: Performed By: #### C BC ####[facility] Mybahhthsf8347 [place] [phone] Agn[place]ka Eosinophils 0.0 103/ul Normal 0.0-0.7 [facility] Comment on above: Performed By: #### C BC ####[facility] Opisyfqmuf5919 [address] Yipen Eosinophils/100 leukocytes 0.1 % Critically low 0.9-7.0 [facility] Comment on above: Performed By: #### C BC ####[facility] Gibzlyxbps7197 [address] [place] Erythrocyte distribution width Auto Ratio (RBC) 12.1 % Normal 11.0-15.0 [facility] Comment on above: Performed By: #### C BC ####[facility] Djiyzegcjc[address] [place] [address] Agn[place]ka Erythrocytes (RBC) 4.29 106/ul Normal 4.20-5.40 [facility] Comment on above: Performed By: #### C BC ####[facility] Ywdlgpfkpa[address] [place], [place] [address]Gerken Agnieszka Hematocrit (HCT) 34.4 % Critically low 36.0-48.0 [facility] Comment on above: Performed By: #### C BC ####[facility] Tipwnssqkw4582 [place] [phone] Agnieszka Hemoglobin mass conc (Bld) 12.9 g/dL Normal 12.0-16.0 [facility] Comment on above: Performed By: #### C BC ####[facility] Vxyjsbrxbv1932 [place] [phone] Agnieszka IG # 0.11 10e3/ul Critically high 0.00-0.03 [facility] Comment on above: Performed By: #### C BC ####[facility] Dmponmamry11[address] [place] IG % 0.8 % Critically high 0.0-0.5 [facility] Comment on above: Performed By: #### C BC ####[facility] Qgxoofvwzf7128 [place] [phone] Agn[place]ka Lymphocytes 1.4 103/ul Normal 1.2-3.8 [facility] Comment on above: Performed By: #### C BC ####[facility] Sybqvrzrgu2907 [place] [phone] Agn[place]ka Lymphocytes/100 leukocytes 9.8 % Critically low 20.5-60.0 [facility] Comment on above: Performed By: #### C BC ####[facility] Knrhwefunl1919 [place] [phone] Agn[place]ka MANUAL DIFF REQ NO Normal [facility] Comment on above: Performed By: #### C BC ####[facility] Cyamlasjzq[address] [place] [address] Ag[place] MCH 30.1 pg Normal 26.7-34.0 [facility] Comment on above: Performed By: #### C BC ####[facility] [address]ukuvymdpt[address] [place], [place] [address]Gerken Agnieszka MCHC mass conc (RBC) 37.5 g/dL Critically high 29.9-35.2 [facility] Comment on above: Performed By: #### C BC ####[facility] Iaswfcwziw40[address] [place], [place] [address]Gerken Agnieszka MCV 80.2 fL Critically low 81.0-99.0 [facility] Comment on above: Performed By: #### C BC ####[facility] Tzfzimstmm2867 [place] [phone] Agn[place] Monocytes 0.7 103/ul Normal 0.3-0.8 [facility] Comment on above: Performed By: #### C BC ####[facility] Ysyfqgufjh7632 [place] [phone] Agn[place]ka Monocytes/100 leukocytes 5.1 % Normal 1.7-12.0 [facility] Comment on above: Performed By: #### C BC ####[facility] Aiomhtqzku[address] [place], [place] [address]Gerken Agn[place] Neutrophils 11.6 103/ul Critically high 1.4-6.5 [facility] Comment on above: Performed By: #### C BC ####[facility] Izigaozses3084 [place] [phone] Agnies[place] Neutrophils/100 WBC Auto (Bld) 84.1 % Critically high 43.0-75.0 [facility] Comment on above: Performed By: #### C BC ####[facility] Igfkxuhlot9687 [place] [phone] [place] Platelet mean volume (PMV) 11.0 fL Normal 9.5-13.5 [facility] Comment on above: Performed By: #### C BC ####[facility] Sxfckbmchb[address] [place], [place] [address]Gerken [place] Platelets 281 103/ul Normal 150-450 [facility] Comment on above: Performed By: #### C BC ####[facility] Nhmvrselic[address] [place], [place] [address]Gerken [place] WBC (Leukocytes) 13.8 103/ul Critically high 4.0-11.0 [facility] Comment on above: Performed By: #### C BC ####[facility] Qclsduqrau[address] [place], [place] [address]Gerken [place] CREATININE URINEon 8 URINE CREAT 46.06 mg/dL Normal 20.00-300.00 [facility] Comment on above: Performed By: #### ELIF LAL ####[facility] Zlqamyebut6653 [place], [place] [address]Qvtdrr [place] CULTURE URINEon 11-11-2017 CULTURE URINE Culture Observations : FINAL SCANNED RESULT TO FOLLOW IN HPF Normal [facility] Comment on above: Performed By: #### C MARIZAR ####[facility] [address]lydbg[address] [place] [address]Fwgliw [place] ER URINE PROFILEon 8 Bilirubin (total) Negative Normal NEGATIVE [facility] Comment on above: Performed By: #### E HAMZAH BOWERS ####[facility] Giwwqeivxn10[address] [place] BLOOD SMALL Normal NEGATIVE [facility] Comment on above: Performed By: #### MURPHY HALLRO ####[facility] Hyqqfiafzf7471 [address] [place] ERUAHD A micrscopic examination will be performed if indicated. Normal [facility] Comment on above: Performed By: #### JOLENE HALLICRO ####[facility] Vzdfqrumby7001 [address] [place] Glucose mass conc Negative Normal NEGATIVE [facility] Comment on above: Performed By: #### JOLENE HALLICRO ####[facility] Pekcdpmfdd2105 [address] [place] pH of blood 7.0 [pH] Normal 5-9 [facility] Comment on above: Performed By: #### MURPHY HALLRO ####[facility] Puljsirmqh2344 [address] [place] Protein Negative Normal [facility] Comment on above: Performed By: #### JOLENE HALLICRO ####[facility] Emdyvlheer8905 [address] [place] SPEC GRAVITY 1.015 Normal 1.005-<=1.025 [facility] Comment on above: Performed By: #### [place] BOWERS UMICRO ####[facility] Mcjtlblmoy1107 [address] [place] UR MICRO IND INDICATED Normal [facility] Comment on above: Performed By: #### [place] BOWERS UMICRO ####[facility] Mtrqnecybg4178 [place] [phone] Ag[place] Urine, clarity CLEAR Normal [facility] Comment on above: Performed By: #### MURPHY HALLRO ####[facility] Btwhdlesox25[address] [place] Urine, color LT. YELLOW Normal YELLOW [facility] Comment on above: Performed By: #### MURPHY HALLRO ####[facility] Ekhlltupqt6193 [place] [phone] [place] Urine, ketones presence 15 mg/dl Normal NEGATIVE [facility] Comment on above: Performed By: #### HAMZAH HALL ####[facility] [address]ot[address] [place] [id number] Agnieszka Urine, nitrite presence Negative Normal NEGATIVE [facility] Comment on above: Performed By: #### HAMZAH HALL ####[facility] Uqhrzxwyav280[address] [place] [id number] Agnieszka Urine, urobilinogen 0.2 {Vandana'U}/dL Normal [facility] Comment on above: Performed By: #### HAMZAH HALL ####[facility] [address] [place], [place] [address]Gerken Agnieszka WBC (Leukocytes) Negative Normal NEGATIVE [facility] Comment on above: Performed By: #### HAMZAH HALL ####[facility] Y[address] [place], [place] [address]Gerken Agnieszka ETHANOL (BLD ALC)on 11-12-19 18 ALC NOTE NOTE: 80 mg/dl is th e legal limit for a blood alcohol level Normal [facility] Comment on above: Performed By: #### Lee Ann MEJÍA ####[facility] [address] [place], [place] [address]Gerken Agnieszka Ethanol mg/dL Normal [facility] Comment on above: Performed By: #### Lee Ann MEJÍA ####[facility] Orcqxroke[address] [place], [place] [address]Gerken Agnieszka LIVER PROFILEon 11-11-2017 Alanine aminotransferase (ALT) 66 U/L Critically high 9-52 [facility] Comment on above: Performed By: #### PROSPER GREEN ####[facility] [address] [place], [place] [address]Gerken Agnieszka Albumin 4.1 g/dL Normal 3.5-5.0 [facility] Comment on above: Performed By: #### PROSPER GREEN ####[facility] Z[address] [place], [place] [address]Gerken Agnieszka Albumin/Globulin Ratio 1.3 {ratio} Normal [facility] Comment on above: Performed By: #### Lisseth WILD, BMP ####[facility] Zfxvgrrbrl[address] Agnies[place]ka Alkaline phosphatase (ALP) 80 U/L Normal 38-126 [facility] Comment on above: Performed By: #### Lisseth WILD, BMP ####[facility] Mswkflghdp0302 [address] Agnies[place]ka Aspartate aminotransferase (AST) 111 U/L Critically high 14-36 [facility] Comment on above: Performed By: #### Lisseth WILD BMP ####[facility] X[address] [place] [address] Agnieszka BILI, CONJUGATED 0.0 mg/dL Normal 0.0-0.3 [facility] Comment on above: Performed By: #### Lisseth WILD, BMP ####[facility] [address] [place] [address] Agnieszka Bilirubin Ql (U) 1.3 mg/dL Normal 0.2-1.3 [facility] Comment on above: Performed By: #### Lisseth WILD BMP ####[facility] [address] [place] [address] Agnieszka Globulin 3.1 g/dL Normal [facility] Comment on above: Performed By: #### Lisseth WILD, BMP ####[facility] [address] [place] [address] Agnieszka Protein 7.1 g/dL Normal 6.1-8.2 [facility] Comment on above: Performed By: #### Lisseth WILD, BMP ####[facility] [address] [place] [address] Agnieszka PROF CHEM 8 (BAS METB)on Anion gap 11.3 mmol/L Normal [facility] Comment on above: Performed By: #### B MP, TSH ####[facility] Qinqngpmci3985 [address] Agn[place]ka BUN/Creatinine Ratio 29.7 mg/mg Normal [facility] Comment on above: Performed By: #### B MP, TSH ####[facility] Vyiyuczzgp7[address] [place], [place] [address]Uhyjsk Agnieszka Calcium 8.4 mg/dL Normal 8.4-10.2 [facility] Comment on above: Performed By: #### B MP, TSH ####[facility] Ceswwvkzxj44[address] [place] [phone] Agnieszka Chloride 67 mmol/L Critically low 98-107 [facility] Comment on above: Result Comment: test repeated critical value verified Performed By: #### B MP, TSH ####[facility] Yeqkapwkfp4491 [place] [phone] Agnieszka CO2 23.0 mmol/L Normal 22.0-30.0 [facility] Comment on above: Performed By: #### B MEAGAN, TSH ####[facility] [address]wina[address] [place] [address]Gerken Agnieszka Creatinine 0.43 mg/dL Critically low 0.52-1.04 [facility] Comment on above: Performed By: #### B MEAGAN, TSH ####[facility] Lzfymnxpdw17[address] [place] [phone] Agnieszka eGFR (non-black) mL/min/{1.73_m2} Normal >=60 [facility] Comment on above: Performed By: #### B MEAGAN, TSH ####[facility] Toehlgkrzg[address]46 [place] [phone] Agnieszka Glucose mass conc 102 mg/dL Normal 74-106 [facility] Comment on above: Performed By: #### B MP, TSH ####[facility] Fpyaomdqfy8639 [place] [phone] Agnieszka Potassium molar conc 3.6 mmol/L Normal 3.4-5.0 [facility] Comment on above: Performed By: #### B MEAGAN, TSH ####[facility] Erbzjsghgh7758 [place] [phone] Agnieszka Sodium 98 mmol/L Critically low 137-145 [facility] Comment on above: Result Comment: test repeated critical value verified Performed By: #### B MP, TSH ####[facility] Ujnogbwinw5058 [place] [phone] Agnieszka Urea nitrogen 13.0 mg/dL Normal 7.0-17.0 [facility] Comment on above: Performed By: #### B MP, TSH ####[facility] Ulmtuunqjc7848 [place] [phone] Agnieszka Anion gap 12.7 mmol/L Normal [facility] Comment on above: Performed By: #### B MP ####[facility] Qjejuwnzck2773 [place] [phone] Angieszka BUN/Creatinine Ratio 28.2 mg/mg Normal [facility] Comment on above: Performed By: #### B MP ####[facility] [address] [place], [place] [address]Gerken Agnieszka Calcium 9.1 mg/dL Normal 8.4-10.2 [facility] Comment on above: Performed By: #### B MP ####[facility] By[address] [place], [place] [address]Gerken Agnieszka Chloride 66 mmol/L Critically low 98-107 [facility] Comment on above: Result Comment: test repeated critical value verified Performed By: #### B MP ####[facility] [address] [place] [address] Agnieszka CO2 24.0 mmol/L Normal 22.0-30.0 [facility] Comment on above: Performed By: #### B MP ####[facility] [address] [place] [address]Gerken Agnieszka Creatinine 0.47 mg/dL Critically low 0.52-1.04 [facility] Comment on above: Performed By: #### B MP ####[facility] Ljem[address]pyxq6181 [place] [phone] Agnieszka eGFR (non-black) mL/min/{1.73_m2} Normal >=60 [facility] Comment on above: Performed By: #### B MP ####[facility] Gkynajzekn4785 [place] [phone] Agnieszka Glucose mass conc 67 mg/dL Critically low 74-106 [facility] Comment on above: Performed By: #### B MP ####[facility] X[address]untiepzx[address] [place] [phone] Agnieszka Potassium molar conc 4.1 mmol/L Normal 3.4-5.0 [facility] Comment on above: Performed By: #### B MP ####[facility] Webdbofdnc3106 [place] [phone] Agnieszka Sodium 98 mmol/L Critically low 137-145 [facility] Comment on above: Result Comment: test repeated critical value verified Performed By: #### B MP ####[facility] Gnwgqcrwwu0923 [place] [phone] Agnieszka Urea nitrogen 13.0 mg/dL Normal 7.0-17.0 [facility] Comment on above: Performed By: #### B MP ####[facility] Oxmcgfegem9718 [place] [phone] Agnieszka Anion gap 12.3 mmol/L Normal [facility] Comment on above: Performed By: #### B MP ####[facility] Fu[address] [place], [place] [address]Gerken Agnieszka BUN/Creatinine Ratio 26.1 mg/mg Normal [facility] Comment on above: Performed By: #### B MP ####[facility] Jstkftfexv4361 [place] [phone] Agnieszka Calcium 9.1 mg/dL Normal 8.4-10.2 [facility] Comment on above: Performed By: #### B MP ####[facility] Ukybijfvnr9328 [place] [phone] Agnieszka Chloride 64 mmol/L Critically low 98-107 [facility] Comment on above: Result Comment: test repeated critical value repeated Performed By: #### B MP ####[facility] Ubgovoqwbn8789 [place] [phone] Agnieszka CO2 24.0 mmol/L Normal 22.0-30.0 [facility] Comment on above: Performed By: #### B MP ####[facility] Yuwadbjenl6176 [place] [phone] Agnieszka Creatinine 0.51 mg/dL Critically low 0.52-1.04 [facility] Comment on above: Performed By: #### B MP ####[facility] Ay[address]ymebkh[address] [place], [place] [address]Qvvxsc Agnieszka eGFR (non-black) mL/min/{1.73_m2} Normal >=60 [facility] Comment on above: Performed By: #### B MP ####[facility] Hhwltafuzt17[address] [place] [phone] Agnieszka Glucose mass conc 74 mg/dL Normal 74-106 [facility] Comment on above: Performed By: #### B MP ####[facility] Moeodnctqk9443 [place] [phone] Agnieszka Potassium molar conc 4.2 mmol/L Normal 3.4-5.0 [facility] Comment on above: Performed By: #### B MP ####[facility] Jawudsvemx3733 [place] [phone] Agnieszka Sodium 97 mmol/L Critically low 137-145 [facility] Comment on above: Result Comment: test repeated critical value repeated Performed By: #### B MP ####[facility] Qoshfbuqfw3238 [place] [phone] Agnieszka Urea nitrogen 13.0 mg/dL Normal 7.0-17.0 [facility] Comment on above: Performed By: #### B MP ####[facility] Veq[address]uywmo2651 [place] [phone] Agnieszka Anion gap 14.7 mmol/L Normal [facility] Comment on above: Performed By: #### PROSPER GREEN ####[facility] Jdenlljyxx9499 [place] [phone] Agnieszka BUN/Creatinine Ratio 27.3 mg/mg Normal [facility] Comment on above: Performed By: #### PROSPER GREEN ####[facility] Omkxgbneqw4278 [address] [place] Calcium 9.8 mg/dL Normal 8.4-10.2 [facility] Comment on above: Performed By: #### Lisseth WILD BMP ####[facility] Exzdnykbao5878 [place] [phone] Agnieszka Chloride 60 mmol/L Critically low 98-107 [facility] Comment on above: Result Comment: test repeated critical value verified Performed By: #### Lisseth WILD BMP ####[facility] Miedhfvcgb1319 [place] [phone] Agnieszka CO2 26.0 mmol/L Normal 22.0-30.0 [facility] Comment on above: Performed By: #### Lisseth WILD BMP ####[facility] Pqewuzlsxh[address] Agn[place]ka Creatinine 0.50 mg/dL Critically low 0.52-1.04 [facility] Comment on above: Performed By: #### Lisseth WILD BMP ####[facility] Yzduunipbj0463 [place] [phone] Agnieszka eGFR (non-black) mL/min/{1.73_m2} Normal >=60 [facility] Comment on above: Performed By: #### Lisseth WILD BMP ####[facility] Pjyprczycq3528 [place] [phone] Agnieszka Glucose mass conc 81 mg/dL Normal 74-106 [facility] Comment on above: Performed By: #### Lisseth WILD BMP ####[facility] Mrikehujhe6430 [place] [phone] Agnieszka Potassium molar conc 4.4 mmol/L Normal 3.4-5.0 [facility] Comment on above: Performed By: #### Lisseth WILD BMP ####[facility] Yictaacmbp6195 [place] [phone] Agnieszka Sodium 97 mmol/L Critically low 137-145 [facility] Comment on above: Result Comment: test repeated critical value verified Performed By: #### Lisseth WILD BMP ####[facility] Owiwpylzeb[address] Agnies[place]ka Urea nitrogen 14.0 mg/dL Normal 7.0-17.0 [facility] Comment on above: Performed By: #### L TORRI, BMP ####[facility] [address] [place] [address] Agnieszka SODIUM RANDOM URINEon 2017 Sodium 58 mmol/L Normal 30-90 [facility] Comment on above: Performed By: #### N ELIF MCDONALD ####[facility] [address] [place] [address] Agnieszka TSHon 11-11-2017 Thyroid stimulating hormone (TSH) 0.666 uIU/mL Normal 0.470-4.680 [facility] Comment on above: Performed By: #### B MP, TSH ####[facility] [address] [place] [address] Agnieszka Thyroid stimulating hormone (TSH) SEE BELOW Normal [facility] Comment on above: Result Comment: <0.3 4 UIU/ml HYPERTHYROID 0.34-5.60 UIU/ml EUTHYROID >5.60 UIU/ml HYPOTHYROID Performed By: #### B MP, TSH ####[facility] [address] [place] [address] Agnieszka URINE MICROSCOPIC ONLYon AMORPHOUS CRYSTALS FEW Normal [facility] Comment on above: Performed By: #### HAMZAH HALL ####[facility] [address] [place] [address] Agnieszka CAST SEEN Normal NONE SEEN [facility] Comment on above: Performed By: #### MURPHY HALLRO ####[facility] [address] [place] [address] Agnieszka CULTURE INDICATED Normal [facility] Comment on above: Performed By: #### MURPHY HALLRO ####[facility] [address]exy[address] [place] [address] Agnieszka Erythrocytes (RBC) 2-5 Normal 0-2 [facility] Comment on above: Performed By: #### HAMZAH HALL ####[facility] Epktuqasgx0859 [place], [place] [address]Uwpnxd Agn[place]ka HYALINE CAST RARE Normal [facility] Comment on above: Performed By: #### HAMZAH HALL ####[facility] Exrceusvre[address] [place], [place] [address]Vpeeal Agn[place]ka MUCOUS NONE SEEN Normal NONE SEEN [facility] Comment on above: Performed By: #### MURPHY HALLRO ####[facility] Pjrjhgraag0785 [place], [place] [address]Wfvgrp Agnies[place]ka Urine, bacteria in sediment MODERATE Normal NONE SEEN [facility] Comment on above: Performed By: #### HAMZAH HALL ####[facility] Vjrnltkmuo0831 [place], [place] [address]Mxtxho Agnieszka Urine, crystals in sediment SEEN Normal NONE SEEN [facility] Comment on above: Performed By: #### HAMZAH HALL ####[facility] S[address]eut54[address] [place], [place] [address]Lfuudv Agnieszka Urine, epithelial cells in sediment RARE Normal [facility] Comment on above: Performed By: #### HAMZAH HALL ####[facility] Xcbfpgutll5737 [place], [place] [address]Ujcosr Agn[place]ka WBC (Leukocytes) 0-2 Normal NONE SEEN [facility] Comment on above: Performed By: #### HAMZAH HALL ####[facility] Belby[address]nsg[address] [place] [phone] Agnieszka XR C-SPINE 2-3 VIEWSon 11-11 XR C-SPINE 2-3 VIEWS [address] [place] [address] Patient: ALFIE DANIELLE Exam Date: 11/11/2017DOB: 1935 Gender:F : NARCISO BOSTON Admission #: [id number] : AIMEE PYLE . Order #: [id number] HERE TO VIEW EXAM RADIOLOGY REPORT PROCEDURE: RADIOGRAPH C-SPINE 2-3 VIEWS COMPARISON: None. INDICATIONS: Acute right cervical spine pain with no known injury. FINDINGS: BONES: Reversal of normal cervical lordosis. 2 mm anterolisthesis C4 on C5. Moderate to severe degenerative spondylosis and facet osteoarthritisDISC SPACES: Normal. No significant disc height narrowing, subluxation, or endplate abnormality. PARASPINOUS: Negative. No paraspinous abnormality is seen. OTHER: C7 is not seen on the lateral projection CONCLUSION: 1. Moderate to severe degenerative spondylosis, facet osteoarthritis and reversal of normal cervical lordosis Dictated by: Sabra Leslie M.D. on 11/11/2017 at 09:49 Approved by: Sabra Leslie M.D. on 11/11/2017 at 09:50 Normal [facility] XR CHEST 2 Von 11-11-2017 XR CHEST 2 V [address] [place] [address] Patient: ALFIE DANIELLE Exam Date: 11/11/2017DOB: 1935 Gender:F : NARCISO BOSTON Admission #: [id number] : AIMEE PYLE . Order #: [id number] HERE TO VIEW EXAM RADIOLOGY REPORT PROCEDURE: RADIOGRAPH CHEST 2 VIEWS COMPARISON: None. INDICATIONS: Acute nausea and vomiting for one week. FINDINGS: LUNGS: Hyperinflation. Scattered pulmonary nodules, size and density suggest granulomasVASCULATURE: No increased pulmonary vasculature. PLEURA: No pneumothorax, effusion, or pleural thickening. CARDIAC: No cardiomegaly or cardiac silhouette abnormality. MEDIASTINUM: No visible mass or adenopathy. BONES: Degenerative spondylosis. Rotatory S-shaped curvature. Right shoulder arthroplastyOTHER: Negative. CONCLUSION: 1. Hyperinflation Dictated by: Sabra Leslie M.D. on 11/11/2017 at 09:47 Approved by: Sabra Leslie M.D. on 11/11/2017 at 09:48 Normal [facility] Encounters Encounter Date Encounter Type Care Provider Facility Start: 09-02-2023 End: 09-02-2023 ambulatory Carlos Enrique Vasquez Other [facility] Other Start: 09-02-2023 Telephone encounter Carlos Enrique Vasquez [facility] Start: 08-29-2023 End: 08-29-2023 ambulatory Carlos Enrique Vasquez Other [facility] Other Start: 08-29-2023 Home visit est pt mod-hi severity 40 minutes Carlos Enrique Vasquez [facility] Start: 12-06-2017 End: 12-07-2017 Ambulatory DEFAULT PHYSICIAN Facility:[facility] Start: 12-01-2017 End: 12-01-2017 Ambulatory AIMEE PYLE Facility:[facility] Start: 11-27-2017 End: 11-28-2017 Ambulatory AIMEE PYLE Facility:[facility] Start: 11-26-2017 Ambulatory AIMEE PYLE Facilit y:[facility] Start: 11-21-2017 End: 11-21-2017 Ambulatory AIMEE PYLE Facility:[facility] Start: 11-18-2017 End: 11-18-2017 Ambulatory AIMEE PYLE Facility:[facility] Start: 11-16-2017 End: 11-16-2017 Ambulatory AIMEE PYLE Facility:[facility] Start: 11-11-2017 End: 11-14-2017 Evaluation and management of inpatient AIMEE PYLE Facility: Start: 08-03-2015 Adult health examination Carlos Enrique Vasquez Other [facility] Other Procedures Date Procedure Procedure Detail Performing Clinician Start: 11-12-2017 Insertion of Infusio n Device into Superior Vena Cava, Percutaneous Approach AIMEE PYLE Immunizations Immunization Date Immunization Notes Care Provider Burt monae 04-18-2016 influenza, injectabl e, quadrivalent, preservative free Carlos Enrique Pedro Other [facility] Other 04-30-2015 influenza, high dose seasonal, preservative-free Carlos Enrique Pedro Other [facility] Other 04-30-2015 pneumococcal conjuga te vaccine, 13 valent Carlos Enrique Vasquez Other [facility] Other 05-20-2013 zoster vaccine, live Parmjit Vasquez Other [facility] Other 05-09-2009 influenza virus vaccine, split virus (incl. purified surface antigen) Carlos Enrique Vasquez Other [facility] Other Payers Date Payer Category Payer Unknown [id number] 1959 Medicare [id number] 1959 Self-pay [id number] Unknown Social History Date Type Detail Facility Sex Assigned At [facility] Other Evaluation note 08-29-2023 Note Date & Type Note Facility 08-29-2023 Evaluation note Encounter Date Diagnosis Assessment Notes Aug, Primary hypertension (ICD-10 - I10) This patient is instructed to consume a healthy, low-fat, low-salt diet. They are also encouraged to continue exercise to achieve/maintai n a normal BMI. 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 Tylenol 1000mg tid as needed Aug, Age-related osteoporosis without current pathological fracture (ICD-10 - M81.0) Continue Ca and Vit D supplements. Continue weight bearing activity. No hx of fragility fx Aug, Alzheimer's disease with late onset (ICD-10 - G30.1) Requires 24 hour care and assistance w/ IADL/ADL She exhibits no behavioral problems. Maintains good appetite, consistent sleeping routine. 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 They are to use intermittent heat and ice as needed. They may schedule a massage or gentle manipulation. They may safely use Tylenol as needed. Fall precautions, continue use of wheeled walker w/ seat. [facility] Other Evaluation note Note Date & Type Note Facility Evaluation note No Information [facility] Other History general Narrative - Reported Note Date & Type Note Facility History general Narrative - Reported Type Medical History HTN Medical History Cervical spinal stenosis Medical History hypertension Medical History Colonoscopy-Hemorrhoids Surgical History BACK SURGERY 1966 Surgical History HYSTERECTOMY 1975 Surgical History BREAST CYST LEFT 1981 Surgical History ROTARY CUFF RIGHT 1986 Surgical History BOWEL OBSTRUCTION 1988 Surgical History ROTARY LEFT -1988 Surgical History LEFT TOENAIL REMOVED 1990 Surgical History CARPAL TUNNEL RIGHT HAND 1997 Surgical History CARPAL TUNNEL LEFT HAND 1997 Surgical History CATARACT REMOVED LEFT 2010 Surgical History CATARACT REMOVED RIGHT 2009 Surgical History right shoulder replacement 10/06 Surgical History COLONOSCOPY 09-08-2015 Hospitalization History SEE ABOVE Hospitalization History SEE ABOVE [facility] Other Summary Purpose Family History No Family History Records FoundNo Family History Records Found Advance Directives No Advanced Directives Records FoundNo Advanced Directives Records Found Additional Source Comments INFORMATION SOURCE (unrecogn ized section and content) DATE CREATED AUTHOR 01/30/2018 [facility] DATE CREATED AUTHOR AUTHOR'S ORGANIZ ATION 02/14/2018 [facility] REASON FOR VISIT (unrecogniz ed section and content) [facility] results FOR RECORDS PERTAINING TO PATIENTS WHO ARE OR HAVE BEEN ENROLLED IN A CHEMICAL DEPENDENCY/SUBSTANCEABUSE PROGRAM, SOME INFORMATION MAY BE OMITTED. This clinical summary was aggregated from multiple sources. Caution should be exercised in using it in the provision of clinical care. This summary normalizes information from multiple sources, and as a consequence, information in this document may materially change the coding, format and clinical context of patient data. In addition, data may be omitted in some cases. CLINICAL DECISIONS SHOULD BE BASED ON THE PRIMARY CLINICAL RECORDS. [employer] [facility]. provides no warranty or guarantee of the accuracy or completeness of information in this document.
[2024-03-02 11:30] LABS: Basophils Percent Auto 0.4 % (0.2-2.0); Eosinophils Absolute Auto 0.1 10^3/uL (0.0-0.7); Eosinophils Percent Auto 1.1 % (0.9-7.0); Hematocrit 37.1 % (36.0-48.0); Immature Granulocytes Abs Auto 0.02 10^3/uL (0.00-0.03); Immature Granulocytes Pct Auto 0.2 % (0.0-0.5); Lymphocytes Absolute Auto 2.1 10^3/uL (1.2-3.8); Lymphocytes Percent Auto 26.6 % (20.5-60.0); Mean Corpuscular HGB Conc 32.3 g/dL (29.9-35.2); Mean Corpuscular Hemoglobin 30.9 pg (26.7-34.0); Mean Corpuscular Volume 95.6 fL (81.0-99.0); Mean Platelet Volume 11.5 fL (9.5-13.5); Monocytes Absolute Auto 0.6 10^3/uL (0.3-0.8); Monocytes Percent Auto 7.3 % (1.7-12.0); Neutrophils Absolute Auto 5.2 10^3/uL (1.4-6.5); Neutrophils Percent Auto 64.4 % (43.0-75.0); Platelet Count 264 10^3/uL (150-450); Red Blood Count 3.88 10^6/uL (4.20-5.40); Red Cell Distribution Width 13.2 % (11.0-15.0); White Blood Count 8.1 10^3/uL (4.0-11.0)
[2024-03-02 11:40] LABS: BUN Creatinine Ratio 29.9; Calcium 9.4 mg/dL (8.5-10.1); Carbon Dioxide 28.2 mmol/L (21.0-32.0); Chloride 100 mmol/L (98-107); Estimated GFR (African America >60 (>=60); Estimated GFR (Non-African Ame >60 (>=60); Glucose 92 mg/dL (74-106); Potassium 4.2 mmol/L (3.5-5.1); Sodium 137 mmol/L (136-145)
== END 2024-03-02 02:18 | disposition home or self-care (01) ==
LOC: LAB 02:17
PROVIDERS: PCP Internal Medicine; Visit Provider Internal Medicine
DX: E87.1 Hypo-osmolality and hyponatremia (principal); E55.9 Vitamin D deficiency, unspecified; R62.7 Adult failure to thrive
CPT/HCPCS: 36415; 80048; 85025